=== PATIENT | female | born 1945 | race Caucasian/White ===

== ENCOUNTER 2017-04-18 22:54 | Emergency (ER) | payer MEDICARE ==
[2017-04-18 23:11] VITALS: TEMP 97.7
[2017-04-18] MEDS ORDERED: HYDROmorphone 1 MG/ML 1 ML SYRINGE IM STA (23:35)
[2017-04-18] MEDS ORDERED: methylPREDNISolone SOD SUCCI 125 MG/2 ML VIAL IM STA (23:36)
--- NOTE | 2017-04-19 00:10 | ED ---
General Adult HPI - General Chief complaint: Back Pain/Injury Stated complaint: Back Pain Time Seen by Provider: 04/18/17 23:18 Source: patient, family, RN notes reviewed Mode of arrival: ambulatory Limitations: no limitations - History of Present Illness Initial comments: Chief complaint and history of present illness this is a 71-year-old female here with her . The patient is writhing in pain because of disc type pain in her mid to upper thoracic region. This been ongoing for approximately 2 weeks. After lifting heavy water bottles. She did see Dr. Pantoja, a physiatry is reevaluated. She reports he took 14 x-rays and diagnosed her with scoliosis. He then placed her on a Medrol Dosepak. Patient is here because she 's having severe pain and cannot stand the pain. Reports ALLERGIES to codeine. But she can take hydrocodone which she had taken in the past when she had ENT surgery. She's taken only one per night in order to get 20 minutes of rest. - Related Data Home Medications Medication Instructions Recorded Confirmed HYDROcodone/APAP 5-325MG [Rew 1 tab PO Q6HR PRN 04/18/17 04/18/17 5-325] methylPREDNISolone [Medrol Dose See Taper PO DIRECTED 04/18/17 04/18/17 Pack] Previous Rx's Medication Instructions Recorded Dexamethasone 0.75 mg PO DAILY #12 tablet 04/19/17 Diazepam [Valium] 5 mg PO BID #6 tab 04/19/17 Hydrocodone/Acetaminophen [Rew 1 each PO Q6HR PRN #30 tab 04/19/17 5-325] Allergies Allergy/AdvReac Type Severity Reaction Status Date / Time codeine Allergy Itching Verified 04/18/17 23:27 Review of Systems ROS Statement: Those systems with pertinent positive or pertinent negative responses have been documented in the HPI. Review of systems no headache or visual acuity changes no shortness of breath she has back pain specific to a particular area in approximately the T345 area. When she leaned over with her arms hanging down she can relieve herself from the pain. When she tries to lay down and she cannot find a position of comfort. Denies any GI/ problems. No fever or chills. All systems are reviewed. 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 Patient denies any other significant medical problems. Her surgeries include tonsils, adenoids, low back surgery and a melanoma as noted above. Family history mother at colon cancer brother has brain cancer. The patient has ALLERGIES to codeine. She can take hydrocodone which she's had in the past for ENT procedure. She's been using 1 pill sparingly and the prescription was written over 3 years ago. nonsmoker occasional alcohol use. ROS Other: All systems not noted in ROS Statement are negative. Past Medical History Past Medical History: No Reported History, Cancer Additional Past Medical History / Comment(s): melonoma History of Any Multi-Drug Resistant Organisms: None Reported Past Surgical History: Adenoidectomy, Back Surgery, Orthopedic Surgery, Tonsillectomy Additional Past Surgical History / Comment(s): melonoma removed left buttoch Past Psychological History: No Psychological Hx Reported Smoking Status: Never smoker Past Alcohol Use History: Occasional Past Drug Use History: None Reported General Exam - General Exam Comments Initial Comments: General: The patient is awake and alert, moderate distress because of pain to her thoracic spine at approximately level of T4. This started after lifting very heavy water bottles several weeks ago. Vital signs temp 97.7 pulse 104 respiratory rate 19 and pulse ox 90% room air blood pressure 176 /108. Elevated because of pain Eye: Pupils are equal, round and reactive to light, extra-ocular movements are intact ; there is normal conjunctiva bilaterally. No signs of icterus. Ears, nose, mouth and throat: There are moist mucous membranes Neck: The neck is supple, there is no tenderness Cardiovascular: There is a regular rate and rhythm. No murmur, rub or gallop is appreciated. Respiratory: Lungs are clear to auscultation, respirations are non-labored, breath sounds are equal. No wheezes, stridor, rales, or rhonchi. Gastrointestinal: Soft, non-distended, non-tender abdomen without masses or organomegaly noted. There is no rebound or guarding present. No CVA tenderness. Bowel sounds are unremarkable. Back: Moderate to severe pain in the disc space approximately T4. Patient reports her blood pressure over the area hurts less. No rash noted. No bruising noted. No numbness or tingling down the arms. Patient reports if she leans forward with her arms dangling this relieves the pressure and pain in her back. Musculoskeletal: Normal ROM, no tenderness, There is no pedal edema. There is no calf tenderness or swelling. Sensation intact. Neurological: CN II-XII intact, There are no obvious motor or sensory deficits. Coordination appears grossly intact. Speech is normal. No focal or lateralizing signs. Skin: Skin is warm and dry and no rashes or lesions are noted. No rashes noted, early shingles discussed. Limitations: no limitations Course Vital Signs 04/18/17 23:06 Temperature 97.7 F Pulse Rate 104 H Respiratory 19 Rate Blood Pressure 176/108 O2 Sat by Pulse 98 Oximetry Medical Decision Making - Medical Decision Making After the shot and a steroid injection patient is feeling significantly better. She'll be placed on Decadron dose pack to be started tomorrow. Also Rew 5 mg one every 4-6 hours for pain and Valium 5 mg 1 twice a day. Advised follow- up with her family physician and her orthopedic surgeon. Disposition Clinical Impression: Thoracic disc disorder Disposition: HOME SELF-CARE Condition: Fair Instructions: Degenerative Disc Disease (ED), Thoracic Back Strain (ED) Additional Instructions: Do gentle stretching, alternating with hot showers. Take medications as directed. Follow-up family physician and orthopedic surgeon Prescriptions: Dexamethasone 0.75 mg PO DAILY #12 tablet Diazepam [Valium] 5 mg PO BID #6 tab Hydrocodone/Acetaminophen [Rew 5-325] 1 each PO Q6HR PRN #30 tab PRN Reason: Pain Referrals: None,Stated [Primary Care Provider] - 1-2 days Time of Disposition: 00:54
[2017-04-19 01:12] VITALS: BP 170/93; PULSE 66; RESP 17
[2017-04-19] MEDS ORDERED: diphenhydrAMINE 50 MG CAP PO STA (01:15)
== END 2017-04-19 01:19 | disposition home or self-care (01) ==
LOC: EC 22:54
DX: M51.84 Other intervertebral disc disorders, thoracic region (principal); M41.9 Scoliosis, unspecified; Z79.52 Long term (current) use of systemic steroids; Z88.5 Allergy status to narcotic agent; Z85.820 Personal history of malignant melanoma of skin; Z98.890 Other specified postprocedural states
CPT/HCPCS: 99283; 96372 ×2; J2930; J1170; 36415; 82565; 84520

== ENCOUNTER → 2017-04-19 | Outpatient (CLI) | payer MEDICARE ==
[2017-04-19 13:38] LABS: Blood Urea Nitrogen 19 mg/dL (7-17); Non-African American GFR(MDRD) >60 (>60 ml/min/1.73 sqM)
== END | disposition home or self-care (01) ==
LOC: LABWHC1 12:49
PROVIDERS: ATTEND Physical Medicine & Rehabilitation
DX: M47.22 Other spondylosis with radiculopathy, cervical region (principal); M47.27 Other spondylosis with radiculopathy, lumbosacral region; M47.814 Spondylosis without myelopathy or radiculopathy, thoracic region; M41.83 Other forms of scoliosis, cervicothoracic region; M41.26 Other idiopathic scoliosis, lumbar region
CPT/HCPCS: 36415; 82565; 84520

== ENCOUNTER → 2017-07-28 | Outpatient (CLI) | payer MEDICARE ==
--- NOTE | 2017-07-28 08:01 | US ---
EXAMINATION TYPE: US thyroid st tissue head/neck DATE OF EXAM: 07/28/2017 COMPARISON: NONE CLINICAL HISTORY: 71-year-old female E04.1 Thryoid Nodule. recent MRI saw nodule on thyroid TECHNIQUE: Multiple sonographic images of the thyroid gland are obtained. FINDINGS: GLAND SIZE: Right Lobe: 4.3 x 1.8 x 1.6 cm Overall Parenchyma: homogenous Left Lobe: 3.1 x 1.2 x 1.4 cm Overall Parenchyma: homogeneous Isthmus Thickness: 0.4 cm NODULES RIGHT: # of nodules measured on right: 1 1. 0.9 X 0.7 x 0.7 cm hypoechoic solid nodule at the mid pole with well-defined margins. This nodu le is taller than wide and shows intranodular vascularity. Prior size: [employer] LEFT: # of nodules measured on left: 0 ISTHMUS: # of nodules measured in the isthmus: 0 Bilateral neck scanned, no evidence of lymphadenopathy. IMPRESSION: Solitary 9 mm solid nodule right mid pole. Follow-up can be performed.
== END | disposition home or self-care (01) ==
LOC: RADUSWWP 07:20
PROVIDERS: ATTEND Otolaryngology
DX: E04.1 Nontoxic single thyroid nodule (principal)
CPT/HCPCS: 76536

== ENCOUNTER 2017-08-09 09:45 | Day surgery (SDC) | payer MEDICARE ==
[2017-08-04 14:44] VITALS: BMI 24.2
--- NOTE | 2017-08-09 05:13 | HP ---
HISTORY AND PHYSICAL CHIEF COMPLAINT: Fluid in the right ear. HISTORY OF PRESENT ILLNESS: This patient is a very pleasant 71-year-old female who was recently seen in my office complaining of having a plugged sensation and decreased hearing in her right ear. The patient stated that she had mild allergies, but does not take any medications for this. At the time that the patient was seen in my office, clinical examination of the ears revealed fluid in the right middle ear space suggesting chronic right serous otitis media so-called glue ear. The patient was placed on a course of oral antibiotics and steroids and was seen back approximately 2 weeks later for evaluation. At that time, it was noted that she had not noticed any significant improvement. Clinical examination revealed the patient still had fluid present in her right ear. It was therefore recommended that the patient undergo a right myringotomy with insertion of a ventilation tube under IV sedation with MAC. PAST MEDICAL HISTORY: Past medical history reveals that she has a known allergy to MORPHINE and to CODEINE. MEDICATIONS: Current medications include Neurontin. PREVIOUS SURGERIES: Previous surgeries include bilateral hernia repair, tubal ligation, multiple benign breast biopsies, removal of melanoma from her buttock, tonsillectomy with adenoidectomy, removal of ganglion cyst from her left wrist, lower back surgery, and rotator cuff repair. There is no history of asthma, diabetes mellitus or hypertension. REVIEW OF SYSTEMS: The review of systems is essentially noncontributory. PHYSICAL EXAMINATION: The patient is a pleasant 71-year-old female who is alert and cooperative. HEENT EXAMINATION: Patient is normocephalic. Left tympanic membrane is unremarkable. Right tympanic membrane is dull with fluid in the right middle ear space. Pupils equal, round, react to light and accommodation. Extraocular movements within normal limits. Intranasal examination reveals moderate to severe septal deviation with compensatory hypertrophy of the inferior turbinates. Moderate amount of mucus on the mucous membranes and draining down the posterior pharynx. Examination of the oropharynx, cranial nerves 2 through 12 and remainder of the head and neck exam all within normal limits. CHEST/CARDIOVASCULAR: Both lung rincon are clear to percussion and auscultation. The patient is in regular sinus rhythm. S1 and S2 are present without evidence of any murmurs, S3 or S4s. ABDOMEN: There is no evidence the masses, megaly or tenderness. The abdomen is soft. Skin is unremarkable. Musculoskeletal and neurological are within normal limits. PELVIC RECTAL EXAM: The pelvic rectal examination is deferred at this time because the patient has this done on a regular basis at her family physician's office. The remainder of the physical examination is essentially unremarkable. IMPRESSION: Chronic right serous otitis media. PLAN: The patient is scheduled to undergo a right myringotomy with insertion of a ventilation tube under IV sedation with MAC in the a.m. ATTENTION RNS IN THE PRE-SURGICAL AREA: I have not ordered any pre-surgical prophylactic antibiotics for this patient. If the pharmacy department sends any pre- surgical prophylactic antibiotics to the pre-surgical area for this patient, that order should be cancelled and the medication should be returned to the pharmacy department. Please make sure that the patient's account is credited appropriately. I have discussed the risks, benefits and alternative therapies for the above-mentioned procedure and for both sedation/analgesia as well as necessary blood product administration, if indicated, as they pertain to this patient. The patient has indicated his or her understanding and acceptance of the risks and procedures discussed. MMMIRIANL / JLN: [id number] /
[~2017-08-09 09:45] MED LIST: DEXAMETHASONE SOD PHOSPHATE 10 MG/ML 1 ML VIAL IV ONE; LACTATED RINGERS 1,000 ML IV SCH; MIDAZOLAM 2 MG/2 ML VIAL IV PRN; ONDANSETRON 4 MG/2 ML VIAL IVP ONE; Pre Op ABX Message 1 EACH MISC MISCELLANE ONE; fentaNYL (PF) 50 MCG/ML 2 ML AMP IV PRN
--- NOTE | 2017-08-09 20:27 | OP ---
OPERATIVE REPORT DATE OF SURGERY: 08/09/2017 PREOPERATIVE DIAGNOSIS: Chronic right serous otitis media. The operative procedure was canceled by the patient because she stated that her hearing had returned to normal and that it felt 100% better. She will contact the office if this situation changes. NINA / YAZ: [id number] /
== END 2017-08-09 12:45 | disposition home or self-care (01) ==
LOC: OR 09:45
PROVIDERS: ATTEND Otolaryngology
DX: H65.21 Chronic serous otitis media, right ear (principal); Z53.29 Procedure and treatment not carried out because of patient's decision for other reasons; Z88.5 Allergy status to narcotic agent; Z79.899 Other long term (current) drug therapy

== ENCOUNTER → 2017-09-21 | Outpatient (CLI) | payer MEDICARE | END | disposition home or self-care (01) | LOC: LABWHC1 11:30 | PROVIDERS: ATTEND Physical Medicine & Rehabilitation | DX: M54.2 Cervicalgia (principal); M47.22 Other spondylosis with radiculopathy, cervical region; M47.24 Other spondylosis with radiculopathy, thoracic region; M51.14 Intervertebral disc disorders with radiculopathy, thoracic region; M54.6 Pain in thoracic spine; M47.27 Other spondylosis with radiculopathy, lumbosacral region; M54.5 Low back pain; M51.36 Other intervertebral disc degeneration, lumbar region; M70.62 Trochanteric bursitis, left hip; M25.552 Pain in left hip | CPT/HCPCS: 36415; 84443 ==

== ENCOUNTER → 2018-03-28 | Outpatient (CLI) | payer MEDICARE ==
--- NOTE | 2018-03-28 11:41 | MM ---
Reason for exam: additional evaluation requested from prior study. Last mammogram was performed 3 years and 11 months ago. History: Patient is postmenopausal and has history of other cancer at age 60. Family history of breast cancer in maternal aunt at age 89 and breast cancer in sister at age 58. Benign core biopsy of the right breast, August 29, 1996. Benign stereotactic core biopsy of the right breast, August 29, 1996. Took estrogen for 1 month. Physical Findings: Nurse did not find any significant physical abnormalities on exam. MG 3D Diag Mammo W/Cad TOMA Bilateral CC and MLO view(s) were taken. Prior study comparison: April 13, 2014, right breast MG work up mamm w CAD RT. April 06, 2014, bilateral MG screening mammo w CAD. There are scattered fibroglandular densities. No suspicious abnormality. Stable right upper outer quadrant focal asymmetry. These results were verbally communicated with the patient and result sheet given to the patient on 03/28/18. ASSESSMENT: Benign, BI-RAD 2 RECOMMENDATION: Routine screening mammogram of both breasts in 1 year.
== END ==
LOC: RADMAMWWP 09:20
PROVIDERS: ATTEND Family Medicine
DX: R92.8 Other abnormal and inconclusive findings on diagnostic imaging of breast (principal)
CPT/HCPCS: 77066; G0279; 77062

== ENCOUNTER 2023-03-06 21:48 | Inpatient (IN) | payer MEDICARE ==
[2023-03-06] MEDS ORDERED: HYDROmorphone 1 MG/ML 1 ML SYRINGE IVP STA (21:58)
[2023-03-06] MEDS ORDERED: diphenhydrAMINE 50 MG/ML 1 ML VIAL IVP STA (21:58)
[2023-03-06] MEDS ORDERED: KETOROLAC 15 MG/ML 1 ML VIAL IVP STA (21:58)
[2023-03-06] MEDS ORDERED: SODIUM CHLORIDE 0.9% 1,000 ML IV STA (21:58)
[2023-03-06] MEDS ORDERED: PROCHLORPERAZINE INJ 10 MG/2 ML VIAL IVP STA (21:58)
[2023-03-06] MEDS ORDERED: DEXAMETHASONE SOD PHOSPHATE 10 MG/ML 1 ML VIAL IVP STA (21:59)
--- NOTE | 2023-03-06 22:29 | ED ---
Headache HPI - General Chief Complaint: Headache Stated Complaint: Dizziness, Headaches Time Seen by Provider: 03/06/23 21:57 Source: RN notes reviewed, old records reviewed Mode of arrival: ambulatory Limitations: no limitations - History of Present Illness Initial Comments: This is a 77-year-old female to the emergency department today for evaluation patient Dese for evaluation of severe headache headache and artery pain. Patient states she had a history of recent arterial pain with headache and presents with recurrent headache here in the ER no trauma no fevers. Patient recently did stop taking steroids as it was making her blood pressure high. MD Complaint: headache, "migraine" -: week(s) Onset Description: gradual Location: frontal, temporal Severity: severe Severity scale (1-10): 8 Quality: throbbing, pulsatile, sharp Consistency: constant Improves With: nothing Worsens With: none Context: occurred at rest Associated Symptoms: nausea Other Symptoms: other (0) - Related Data Home Medications Medication Instructions Recorded Confirmed Cyclobenzaprine [Flexeril] 5 mg PO BID PRN 01/29/23 03/07/23 Metoprolol Succinate (ER) [Toprol 100 mg PO DAILY 01/29/23 03/07/23 XL] Pregabalin [Lyrica] 75 mg PO TID 01/29/23 03/07/23 QUEtiapine FUMARATE 50 mg PO HS 01/29/23 03/07/23 Sertraline [Zoloft] 25 mg PO HS 01/29/23 03/07/23 [id number] 1 tab PO Q4HR PRN 03/07/23 03/07/23 [Excedrin] Previous Rx's Medication Instructions Recorded Calcium Carbonate [Tums] 500 mg PO QID PRN tab 01/30/23 Celecoxib 200 mg PO DAILY 30 Days #30 cap 01/30/23 Allergies Allergy/AdvReac Type Severity Reaction Status Date / Time codeine Allergy Itching Verified 03/07/23 10:59 Review of Systems ROS Statement: Those systems with pertinent positive or pertinent negative responses have been documented in the HPI. ROS Other: All systems not noted in ROS Statement are negative. 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 and l ower back pain with nerve pain, rt ear "plugged" History of Any Multi-Drug Resistant Organisms: None Reported Past Surgical History: Adenoidectomy, Back Surgery, Hernia Repair, Orthopedic Surgery, Tonsillectomy Additional Past Surgical History / Comment(s): melanoma removed left buttock, 3 back surgeries with screws in place, ganglion cyst sx Past Anesthesia/Blood Transfusion Reactions: No Reported Reaction Past Psychological History: No Psychological Hx Reported Smoking Status: Never smoker Past Alcohol Use History: Rare Past Drug Use History: None Reported - Past Family History Mother Family Medical History: Cancer Additional Family Medical History / Comment(s): colon Brother(s) Family Medical History: Cancer Additional Family Medical History / Comment(s): brain tumor tx chemo and radiation General Exam Limitations: no limitations General appearance: alert, in no apparent distress, anxious Head exam: Present: atraumatic, normocephalic, normal inspection Eye exam: Present: normal appearance, PERRL, EOMI. Absent: scleral icterus, c onjunctival injection, periorbital swelling ENT exam: Present: normal exam, mucous membranes moist Neck exam: Present: normal inspection. Absent: tenderness, meningismus, lymphadenopathy Respiratory exam: Present: normal lung sounds bilaterally. Absent: respiratory distress, wheezes, rales, rhonchi, stridor Cardiovascular Exam: Present: regular rate, normal rhythm, normal heart sounds. Absent: systolic murmur, diastolic murmur, rubs, gallop, clicks GI/Abdominal exam: Present: soft, normal bowel sounds. Absent: distended, tenderness, guarding, rebound, rigid Extremities exam: Present: normal inspection, full ROM, normal capillary refill. Absent: tenderness, pedal edema, joint swelling, calf tenderness Back exam: Present: normal inspection Neurological exam: Present: alert, oriented X3, CN II-XII intact Psychiatric exam: Present: normal affect, normal mood Skin exam: Present: warm, dry, intact, normal color. Absent: rash Course Vital Signs 03/06/23 03/06/23 03/07/23 21:49 23:00 00:00 Temperature 97.8 F Pulse Rate 99 92 86 Respiratory 18 16 16 Rate Blood Pressure 154/114 117/84 112/90 O2 Sat by Pulse 97 90 L 95 Oximetry - Reevaluation(s) Reevaluation #1: 03/07/23 01:37 EDT Medical records reviewed Reevaluation #2: 03/07/23 01:37 EDT Issue symptoms improved Reevaluation #3: 03/07/23 01:37 EDT She'll 40 results questions answered Reevaluation #4: 03/07/23 01:37 EDT Was pt. sent in by a medical professional or institution ([facility], [facility], urgent care, hospital, or fci...) When possible be specific @ -no Did you speak to anyone other than the patient for history (EMS, parent, family, police, friend...)? What history was obtained from this source @ -no Did you review nursing and triage notes (agree or disagree)? Why? @ -agree Are old charts reviewed (outside hosp., previous admission, EMS record, old EKG, old radiological studies, urgent care reports/EKG's, fci records)? Report findings @ -yes Differential Diagnosis (chest pain, altered mental status, abdominal pain women, abdominal pain men, vaginal bleeding, weakness, fever, dyspnea, syncope, headache, dizziness, GI bleed, back pain, seizure, CVA, palpatations, mental health, musculoskeletal)? @ -prior EKG interpreted by me (3pts min.). @ -yes X-rays interpreted by me (1pt min.). @ -no CT interpreted by me (1pt min.). @ -no U/S interpreted by me (1pt. min.). @ -no What testing was considered but not performed or refused? (CT, X-rays, U/S, labs)? Why? @ -none What meds were considered but not given or refused? Why? @ -none Did you discuss the management of the patient with other professionals (professionals i.e. [facility], [facility], lab, RT, psych nurse, web content & social media manager, die repair, teacher, correctional probation officer, case aide)? Give summary @ -no Was smoking cessation discussed for >3mins.? @ -no Was critical care preformed (if so, how long)? @ -no Were there social determinants of health that impacted care today? How? (Homelessness, low income, unemployed, alcoholism, drug addiction, transportation, low edu. Level, literacy, decrease access to med. care, care home, rehab)? @ -none Was there de-escalation of care discussed even if they declined (Discuss DNR or withdrawal of care, Hospice)? DNR status @ -no What co-morbidities impacted this encounter? (DM, HTN, Smoking, COPD, CAD, Cancer, CVA, ARF, Chemo, Hep., AIDS, mental health diagnosis, sleep apnea, morbid obesity)? @ -none Was patient admitted / discharged? Hospital course, mention meds given and route, prescriptions, significant lab abnormalities, going to OR and other perti nent info. @ - 43 female to the emergency department for evaluation of abdominal pain found of urinary tract infection. Patient was placed on antibiotics and can be discharged home Discharge Undiagnosed new problem with uncertain prognosis? @ -no Drug Therapy requiring intensive monitoring for toxicity (Heparin, Nitro, Insulin, Cardizem)? @ -no Were any procedures done? @ -no Diagnosis/symptom? @ -Headache, possible temporal arteritis Acute, or Chronic, or Acute on Chronic? @ -Acute Uncomplicated (without systemic symptoms) or Complicated (systemic symptoms)? @ -Complicated Side effects of treatment? @ -no Exacerbation, Progression, or Severe Exacerbation? @ -exacerbation Poses a threat to life or bodily function? How? (Chest pain, [place], HI, pneumonia, PE, COPD, DKA, ARF, appy, cholecystitis, CVA, Diverticulitis, Homicidal, Suicidal, threat to staff... and all critical care pts) @ -no Reevaluation #5: 03/07/23 01:37 EDT Differential Headache: Migraine, tension, cluster, carbon monoxide, central venous thrombosis, pension karma temporal arteritis, acute closure glaucoma, intercranial hemorrhage, mastoiditis, sinusitis, head injury, this is not meant to be an all-inclusive list. - Consultations Consultation #1: Spoke with admitting physicians who agree to admit this patient Medical Decision Making - Medical Decision Making 87 female with recent diagnosis of likely temporal arteritis. Patient be started on steroids that she was recently taken off steroids for temporal arteritis treatment pain control. - Lab Data Result diagrams: 03/09/23 10:19 03/09/23 10:19 Lab Results 03/06/23 03/06/23 03/06/23 Range/Units 22:18 22:18 22:18 WBC 8.8 (3.8-10.6) k/uL RBC 3.76 L (3.80-5.40) m/uL Hgb 11.0 L (11.4-16.0) gm/dL Hct 33.7 L (34.0-46.0) % MCV 89.7 (80.0-100.0) fL MCH 29.3 (25.0-35.0) pg MCHC 32.7 (31.0-37.0) g/dL RDW 15.7 H (11.5-15.5) % Plt Count 478 H (150-450) k/uL MPV 8.3 Neutrophils % 58 % Lymphocytes % 32 % Monocytes % 5 % Eosinophils % 1 % Basophils % 0 % Neutrophils # 5.1 (1.3-7.7) k/uL Lymphocytes # 2.8 (1.0-4.8) k/uL Monocytes # 0.5 (0-1.0) k/uL Eosinophils # 0.1 (0-0.7) k/uL Basophils # 0.0 (0-0.2) k/uL ESR 60 H (0-30) mm/Hr PT 10.1 (10.0-12.5) sec INR 0.9 (<1.2) APTT 31.5 H (22.0-30.0) sec Sodium 136 L (137-145) mmol/L Potassium 4.0 (3.5-5.1) mmol/L Chloride 107 (98-107) mmol/L Carbon Dioxide 21 L (22-30) mmol/L Anion Gap 8 mmol/L BUN 11 (7-17) mg/dL Creatinine 0.60 (0.52-1.04) mg/dL Est GFR (CKD-EPI)AfAm >90 (>60 ml/min/1.73 sqM) Est GFR (CKD-EPI)NonAf 90 (>60 ml/min/1.73 sqM) Glucose 116 H (74-99) mg/dL Calcium 9.1 (8.4-10.2) mg/dL Phosphorus 2.8 (2.5-4.5) mg/dL Magnesium 2.0 (1.6-2.3) mg/dL Total Bilirubin 0.6 (0.2-1.3) mg/dL AST 26 (14-36) U/L ALT 23 (4-34) U/L Alkaline Phosphatase 159 H (38-126) U/L Troponin I (0.000-0.034) ng/mL C-Reactive Protein 4.7 H (<1.0) mg/dL NT-Pro-B Natriuret Pep 484 pg/mL Total Protein 6.4 (6.3-8.2) g/dL Albumin 3.7 (3.5-5.0) g/dL Vitamin B12 (200.0-944.0) pg/mL Folate (4.40-31.00) ng/mL TSH (0.350-5.500) UIU/ML Rheumatoid Factor (0-15) IU/mL MARIANO Screen (Negative) 03/06/23 03/07/23 03/08/23 Range/Units 22:18 12:45 13:17 WBC (3.8-10.6) k/uL RBC (3.80-5.40) m/uL Hgb (11.4-16.0) gm/dL Hct (34.0-46.0) % MCV (80.0-100.0) fL MCH (25.0-35.0) pg MCHC (31.0-37.0) g/dL RDW (11.5-15.5) % Plt Count (150-450) k/uL MPV Neutrophils % % Lymphocytes % % Monocytes % % Eosinophils % % Basophils % % Neutrophils # (1.3-7.7) k/uL Lymphocytes # (1.0-4.8) k/uL Monocytes # (0-1.0) k/uL Eosinophils # (0-0.7) k/uL Basophils # (0-0.2) k/uL ESR 48 H (0-30) mm/Hr PT (10.0-12.5) sec INR (<1.2) APTT (22.0-30.0) sec Sodium (137-145) mmol/L Potassium (3.5-5.1) mmol/L Chloride (98-107) mmol/L Carbon Dioxide (22-30) mmol/L Anion Gap mmol/L BUN (7-17) mg/dL Creatinine (0.52-1.04) mg/dL Est GFR (CKD-EPI)AfAm (>60 ml/min/1.73 sqM) Est GFR (CKD-EPI)NonAf (>60 ml/min/1.73 sqM) Glucose (74-99) mg/dL Calcium (8.4-10.2) mg/dL Phosphorus (2.5-4.5) mg/dL Magnesium (1.6-2.3) mg/dL Total Bilirubin (0.2-1.3) mg/dL AST (14-36) U/L ALT (4-34) U/L Alkaline Phosphatase (38-126) U/L Troponin I <0.012 (0.000-0.034) ng/mL C-Reactive Protein (<1.0) mg/dL NT-Pro-B Natriuret Pep pg/mL Total Protein (6.3-8.2) g/dL Albumin (3.5-5.0) g/dL Vitamin B12 262.0 (200.0-944.0) pg/mL Folate (4.40-31.00) ng/mL TSH 3.780 (0.350-5.500) UIU/ML Rheumatoid Factor <15 (0-15) IU/mL MARIANO Screen (Negative) 03/08/23 03/08/23 Range/Units 13:17 13:17 WBC (3.8-10.6) k/uL RBC (3.80-5.40) m/uL Hgb (11.4-16.0) gm/dL Hct (34.0-46.0) % MCV (80.0-100.0) fL MCH (25.0-35.0) pg MCHC (31.0-37.0) g/dL RDW (11.5-15.5) % Plt Count (150-450) k/uL MPV Neutrophils % % Lymphocytes % % Monocytes % % Eosinophils % % Basophils % % Neutrophils # (1.3-7.7) k/uL Lymphocytes # (1.0-4.8) k/uL Monocytes # (0-1.0) k/uL Eosinophils # (0-0.7) k/uL Basophils # (0-0.2) k/uL ESR (0-30) mm/Hr PT (10.0-12.5) sec INR (<1.2) APTT (22.0-30.0) sec Sodium (137-145) mmol/L Potassium (3.5-5.1) mmol/L Chloride (98-107) mmol/L Carbon Dioxide (22-30) mmol/L Anion Gap mmol/L BUN (7-17) mg/dL Creatinine (0.52-1.04) mg/dL Est GFR (CKD-EPI)AfAm (>60 ml/min/1.73 sqM) Est GFR (CKD-EPI)NonAf (>60 ml/min/1.73 sqM) Glucose (74-99) mg/dL Calcium (8.4-10.2) mg/dL Phosphorus (2.5-4.5) mg/dL Magnesium (1.6-2.3) mg/dL Total Bilirubin (0.2-1.3) mg/dL AST (14-36) U/L ALT (4-34) U/L Alkaline Phosphatase (38-126) U/L Troponin I (0.000-0.034) ng/mL C-Reactive Protein (<1.0) mg/dL NT-Pro-B Natriuret Pep pg/mL Total Protein (6.3-8.2) g/dL Albumin (3.5-5.0) g/dL Vitamin B12 (200.0-944.0) pg/mL Folate 14.20 (4.40-31.00) ng/mL TSH (0.350-5.500) UIU/ML Rheumatoid Factor (0-15) IU/mL MARIANO Screen Negative (Negative) - EKG Data -: EKG Interpreted by Me (EKG is sinus tachycardia 101 PA 174 QRS 181 QTC 381) Disposition Clinical Impression: Temporal arteritis, Headache Disposition: ADMITTED IP TO THIS HOSP Condition: Fair Is patient prescribed a controlled substance at d/c from ED?: No Time of Disposition: 01:30
[2023-03-06 22:39] LABS: Basophils % (A) 0 %; Eosinophils # (A) 0.1 k/uL (0-0.7); Eosinophils % (A) 1 %; HCT 33.7 % (34.0-46.0); Lymphocytes # (A) 2.8 k/uL (1.0-4.8); Lymphocytes % (A) 32 %; MCH 29.3 pg (25.0-35.0); MCHC 32.7 g/dL (31.0-37.0); MCV 89.7 fL (80.0-100.0); Mean Platelet Volume 8.3; Monocytes # (A) 0.5 k/uL (0-1.0); Monocytes % (A) 5 %; Neutrophils # (A) 5.1 k/uL (1.3-7.7); Neutrophils % (A) 58 %; Platelet Count 478 k/uL (150-450); RBC 3.76 m/uL (3.80-5.40); RDW 15.7 % (11.5-15.5); WBC 8.8 k/uL (3.8-10.6)
[2023-03-06 22:45] LABS: INR 0.9 (<1.2); Partial Thromboplastin Time 31.5 sec (22.0-30.0); Prothrombin Time 10.1 sec (10.0-12.5)
[2023-03-06 22:56] LABS: Sodium 136 mmol/L (137-145)
[2023-03-06 22:57] LABS: ALT 23 U/L (4-34); AST 26 U/L (14-36); African American GFR (CKD) >90 (>60 ml/min/1.73 sqM); Albumin 3.7 g/dL (3.5-5.0); Alkaline Phosphatase 159 U/L (38-126); Anion Gap 8 mmol/L; Blood Urea Nitrogen 11 mg/dL (7-17); C Reactive Protein 4.7 mg/dL (<1.0); Calcium 9.1 mg/dL (8.4-10.2); Carbon Dioxide 21 mmol/L (22-30); Chloride 107 mmol/L (98-107); Glucose 116 mg/dL (74-99); Non-African American GFR(CKD) 90 (>60 ml/min/1.73 sqM); Phosphorus 2.8 mg/dL (2.5-4.5); Total Bilirubin 0.6 mg/dL (0.2-1.3); Total Protein 6.4 g/dL (6.3-8.2)
[2023-03-06 23:04] LABS: NT-Pro-B-Type Natriuretic Pept 484 pg/mL
[2023-03-07] MEDS: SODIUM CHLORIDE 0.9% 1,000 ML IV SCH ×2 (01:18→14:50)
[2023-03-07] MEDS ORDERED: ONDANSETRON 4 MG/2 ML VIAL IVP PRN (01:35)
[2023-03-07] MEDS ORDERED: NALOXONE 0.4 MG/ML 1 ML VIAL IV PRN (01:35)
[2023-03-07] MEDS ORDERED: ACETAMINOPHEN TAB 325 MG TAB PO PRN (01:35)
[2023-03-07] MEDS: HYDROmorphone 0.5 MG/0.5 ML SYRINGE IVP PRN ×7 (01:47→23:11)
[2023-03-07 09:33] LABS: Erythrocyte Sedimentation Rate 60 mm/Hr (0-30)
[2023-03-07] MEDS ORDERED: CYCLOBENZAPRINE 5 MG TAB PO PRN (12:22)
[2023-03-07] MEDS ORDERED: ASPIRIN-ACET-CAFF 250-250-65MG 1 EACH TAB PO PRN (12:22)
[2023-03-07] MEDS ORDERED: KETOROLAC 15 MG/ML 1 ML VIAL IVP PRN (12:29)
[2023-03-07] MEDS: PREGABALIN 75 MG CAP PO SCH ×3 (12:35→20:20)
[2023-03-07] MEDS: MELOXICAM 7.5 MG TAB PO SCH (13:03)
[2023-03-07] MEDS: PANTOPRAZOLE 40 MG/10 ML VIAL IVP SCH ×2 (13:03→20:20)
[2023-03-07] MEDS: LORATADINE-PSEUDOEPH 5-120 MG 1 EACH TAB.ER.12H PO SCH ×2 (13:03→20:20)
--- NOTE | 2023-03-07 13:57 | P.HPIM ---
History of Present Illness Patient came in with pain and headache in the bilateral temporal area without any visual changes patient headache is severe 8/10 in severity of the bilateral temporal area as well as the maxillary sinus and ethmoid sinus around the eyes. Patient does have sinusitis. Patient was recently hospitalized and at that time temporal arteries this was suspected temporal artery biopsy was never obtain but her years her was very high patient was referred to vascular surgery as an outpatient and patient ended up deciding that the she will not go for temporal artery biopsy is sent symptoms already improved with the systemic steroids. P atient's stop his steroids because of her EKGs facial swelling. Patient denied any visual problems or any history of migraine in the past REVIEW OF SYSTEMS: CONSTITUTIONAL: No fever, no malaise, no fatigue. HEENT: No recent visual problems or hearing problems. Denied any sore throat. CARDIOVASCULAR: No chest pain, orthopnea, PND, no palpitations, no syncope. PULMONARY: No shortness of breath, no cough, no hemoptysis. GASTROINTESTINAL: No diarrhea, no nausea, no vomiting, no abdominal pain. NEUROLOGICAL: No no weakness, no numbness. HEMATOLOGICAL: Denies any bleeding or petechiae. GENITOURINARY: Denies any burning micturition, frequency, or urgency. MUSCULOSKELETAL/RHEUMATOLOGICAL: Denies any joint pain, swelling, or any muscle pain. ENDOCRINE: Denies any polyuria or polydipsia. The rest of the 14-point review of systems is negative. PHYSICAL EXAMINATION: GENERAL: The patient is alert and oriented x3, not in any acute distress. Well developed, well nourished. HEENT: Pupils are round and equally reacting to light. EOMI. No scleral icterus. No conjunctival pallor. Normocephalic, atraumatic. No pharyngeal erythema. No thyromegaly. CARDIOVASCULAR: S1 and S2 present. No murmurs, rubs, or gallops. PULMONARY: Chest is clear to auscultation, no wheezing or crackles. ABDOMEN: Soft, nontender, nondistended, normoactive bowel sounds. No palpable organomegaly. MUSCULOSKELETAL: No joint swelling or deformity. EXTREMITIES: No cyanosis, clubbing, or pedal edema. NEUROLOGICAL: Gross neurological examination did not reveal any focal deficits. SKIN: No rashes. Assessment and plan -Headache may be secondary to sinusitis patient did never was diagnosed with temporal artery biopsy for temporal arthritis but this was suspected during Hospitalization month ago. Repeat the ESR continue with anti-inflammatory medications for headache migraine is another possibility neurology will be consulted. 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 and lower back pain with nerve pain, rt ear "plugged" History of Any Multi-Drug Resistant Organisms: None Reported Past Surgical History: Adenoidectomy, Back Surgery, Hernia Repair, Orthopedic Surgery, Tonsillectomy Additional Past Surgical History / Comment(s): melanoma removed left buttock, 3 back surgeries with screws in place, ganglion cyst sx Past Anesthesia/Blood Transfusion Reactions: No Reported Reaction Past Psychological History: No Psychological Hx Reported Smoking Status: Never smoker Past Alcohol Use History: Rare Past Drug Use History: None Reported - Past Family History Mother Family Medical History: Cancer Additional Family Medical History / Comment(s): colon Brother(s) Family Medical History: Cancer Additional Family Medical History / Comment(s): brain tumor tx chemo and radiation Medications and Allergies Home Medications Medication Instructions Recorded Confirmed Type Cyclobenzaprine [Flexeril] 5 mg PO BID PRN 01/29/23 03/07/23 History Metoprolol Succinate (ER) [Toprol 100 mg PO DAILY 01/29/23 03/07/23 History XL] Pregabalin [Lyrica] 75 mg PO TID 01/29/23 03/07/23 History QUEtiapine FUMARATE 50 mg PO HS 01/29/23 03/07/23 History Sertraline [Zoloft] 25 mg PO HS 01/29/23 03/07/23 History Calcium Carbonate [Tums] 500 mg PO QID PRN tab 01/30/23 03/07/23 Rx Celecoxib 200 mg PO DAILY 30 Days #30 cap 01/30/23 03/07/23 Rx [id number] 1 tab PO Q4HR PRN 03/07/23 03/07/23 History [Excedrin] Allergies Allergy/AdvReac Type Severity Reaction Status Date / Time codeine Allergy Itching Verified 03/07/23 10:59 Physical Exam Vitals: Vital Signs Temp Pulse Pulse Resp BP BP Pulse Ox 03/07/23 08:00 88 18 03/07/23 07:00 97.7 F 88 18 160/103 93 L 03/07/23 01:26 EST 97.8 F 79 16 145/96 97 03/07/23 00:00 86 16 112/90 95 03/06/23 23:00 92 16 117/84 90 L 03/06/23 21:49 97.8 F 99 18 154/114 97 Intake and Output 03/06/23 03/07/23 03/07/23 23:59 06:59 14:59 Other: Voiding Method Toilet # Voids Weight Results CBC & Chem 7: 03/06/23 22:18 03/06/23 22:18 Labs: Abnormal Lab Results - Last 24 Hours (Table) 03/06/23 03/06/23 03/06/23 Range/Units 22:18 22:18 22:18 RBC 3.76 L (3.80-5.40) m/uL Hgb 11.0 L (11.4-16.0) gm/dL Hct 33.7 L (34.0-46.0) % RDW 15.7 H (11.5-15.5) % Plt Count 478 H (150-450) k/uL ESR 60 H (0-30) mm/Hr APTT 31.5 H (22.0-30.0) sec Sodium 136 L (137-145) mmol/L Carbon Dioxide 21 L (22-30) mmol/L Glucose 116 H (74-99) mg/dL Alkaline Phosphatase 159 H (38-126) U/L C-Reactive Protein 4.7 H (<1.0) mg/dL
[2023-03-07] MEDS: SERTRALINE 25 MG TAB PO SCH (20:20)
[2023-03-07] MEDS: QUEtiapine 50 MG TAB PO SCH (20:20)
[2023-03-08] MEDS: HYDROmorphone 0.5 MG/0.5 ML SYRINGE IVP PRN ×7 (02:49→21:26)
[2023-03-08] MEDS: SODIUM CHLORIDE 0.9% 1,000 ML IV SCH (04:40)
[2023-03-08] MEDS: LORATADINE-PSEUDOEPH 5-120 MG 1 EACH TAB.ER.12H PO SCH ×2 (08:07→21:26)
[2023-03-08] MEDS: METOPROLOL SUCCINATE (ER) 100 MG TAB.ER.24H PO SCH (08:07)
[2023-03-08] MEDS: PREGABALIN 75 MG CAP PO SCH ×3 (08:07→21:26)
[2023-03-08] MEDS: PANTOPRAZOLE 40 MG/10 ML VIAL IVP SCH ×2 (08:08→21:26)
[2023-03-08] MEDS: MELOXICAM 7.5 MG TAB PO SCH (08:08)
[2023-03-08] MEDS: hydroCHLOROthiazide 25 MG TAB PO SCH (08:23)
--- NOTE | 2023-03-08 12:25 | P.CNNES ---
History of Present Illness Consult date: 03/08/23 Requesting physician: Gabriella Jama Reason for Consult: headache History of Present Illness: this is a 77-year-old woman who presented emergency department because of headache. She states that the headache is been going on for the past several months and progressively getting worse. The headache is over the bilateral frontal could be the temporal and bilateral occipital region. Sometimes she feels the headache is over the right frontal radiates to the left temporal region. She feels its the sharp stabbing pain at. She said it's constant but worse in the evening time. She states that the headache is severe. at least she feels her headache has been late deviated drastically with the IV steroids as she got during this hospital visit. Denies of any blurry vision. Denies of any jaw pain or any facial pain. Denies of any focal weakness, numbness, difficulty getting her words out swallowing. Denies of any history of stroke. She stated that that she had a recent MRI of the brain the couple weeks ago as an outpatientand does not know the results. after the steroids as she feels her headache is currently mild up he could not rated the 1-10 but again stated it was mild. Denies of any nausea vomiting. Denies any similar headache in the past. Some of the workup during his hospital visit consisted of: ESR 60 repeat ESR yesterday was 48.this seems on 01/29/2023 her ESR was 101. CRP is 4.7. White blood cell is within normal limits. calcium is 9.1, phosphorus 2.8, magnesium 2.0, sodium is 136. It seems that the patient had a CT of the head on 01/29/2023 and reported as age-related atrophic and chronic small vessel ischemic change without acute intracranial process seen at this time. she had CT of the head because of the headache. Review of Systems Review of system: The 12 point system was reviewed and apparent positive and negative per HPI. 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 and lower back pain with nerve pain, rt ear "plugged" History of Any Multi-Drug Resistant Organisms: None Reported Past Surgical History: Adenoidectomy, Back Surgery, Hernia Repair, Orthopedic Surgery, Tonsillectomy Additional Past Surgical History / Comment(s): melanoma removed left buttock, 3 back surgeries with screws in place, ganglion cyst sx Past Anesthesia/Blood Transfusion Reactions: No Reported Reaction Past Psychological History: No Psychological Hx Reported Smoking Status: Never smoker Past Alcohol Use History: Rare Past Drug Use History: None Reported - Past Family History Mother Family Medical History: Cancer Additional Family Medical History / Comment(s): colon Brother(s) Family Medical History: Cancer Additional Family Medical History / Comment(s): brain tumor tx chemo and radiation Medications and Allergies Home Medications Medication Instructions Recorded Confirmed Type Cyclobenzaprine [Flexeril] 5 mg PO BID PRN 01/29/23 03/07/23 History Metoprolol Succinate (ER) [Toprol 100 mg PO DAILY 01/29/23 03/07/23 History XL] Pregabalin [Lyrica] 75 mg PO TID 01/29/23 03/07/23 History QUEtiapine FUMARATE 50 mg PO HS 01/29/23 03/07/23 History Sertraline [Zoloft] 25 mg PO HS 01/29/23 03/07/23 History Calcium Carbonate [Tums] 500 mg PO QID PRN tab 01/30/23 03/07/23 Rx Celecoxib 200 mg PO DAILY 30 Days #30 cap 01/30/23 03/07/23 Rx [id number]-[id number] 1 tab PO Q4HR PRN 03/07/23 03/07/23 History [Excedrin] Allergies Allergy/AdvReac Type Severity Reaction Status Date / Time codeine Allergy Itching Verified 03/07/23 10:59 Physical Examination - Vital Signs Vital Signs: Vital Signs Temp Pulse Resp BP BP Pulse Ox 03/08/23 10:45 69 136/92 98 03/08/23 07:00 98.2 F 82 16 168/112 03/08/23 02:00 97.5 F L 82 16 133/85 94 L 03/07/23 19:26 97.7 F 84 16 162/95 95 03/07/23 14:56 97.8 F 92 18 162/104 96 03/07/23 14:00 88 18 Intake and Output 03/07/23 03/08/23 03/08/23 22:59 06:59 14:59 Intake Total 50 Balance 50 Intake: Oral 50 Other: Voiding Method Toilet Toilet # Voids 1 1 GENERAL: The patient is lying in bed and is not in acute distress. HENT: Supple neck. NEUROLOGICAL: Higher mental function: The patient is awake, alert, oriented to self, place and time. Patient is following commands. No aphasia and no neglect. Cranial nerves: The pupils are round, equal and reactive to light and accommodation. Visual rincon are full to confrontation throughout. Extraocular movement is intact no nystagmus is noted. Facial sensation is normal to touch throughout. The facial strength is normal throughout. Hearing is mildly decreased bilaterally to bilaterally to hand rub. Tongue is midline and moved [id number] without any difficulty. No dysarthria is noted. Shoulder shrug is normal bilaterally. Motor: Gait is normal. The strength is left lower is 5- and appears chronic. Otherwise 5 over 5 throughout. Normal tone and bulk. Cerebellum: Normal finger to nose bilaterally. Sensation: Sensation is normal to touch throughout. Reflexes (right/left): Left lower is 0 and per patient from her back surgery. Otherwise 2+ throughout. Plantars are mute bilaterally. Results - Laboratory Findings CBC and BMP: 03/06/23 22:18 03/06/23 22:18 Abnormal Lab Findings: Abnormal Labs 03/06/23 03/06/23 03/06/23 22:18 22:18 22:18 RBC 3.76 L Hgb 11.0 L Hct 33.7 L RDW 15.7 H Plt Count 478 H ESR 60 H APTT 31.5 H Sodium 136 L Carbon Dioxide 21 L Glucose 116 H Alkaline Phosphatase 159 H C-Reactive Protein 4.7 H 03/07/23 12:45 RBC Hgb Hct RDW Plt Count ESR 48 H APTT Sodium Carbon Dioxide Glucose Alkaline Phosphatase C-Reactive Protein Assessment and Plan Assessment: this is a 77-year-old woman who is been having headache for the past several months and she feels the headache is over the frontal temporal region as well as occipital is seems that her ESR was elevated as high as 101 on 01/29/2023 which is trending down 248 and she feels the headache is improving with steroids.patient stated that she had a recent MRI of the brain as an outpatient and now does not know the results Cephalgia with elevated ESR: concern for temporal arteritis. ESR was as high as a 101 currently is 48 rule out other vasculitis history of lower back surgery History of osteoporosis Hypertension Plan: patient's refusing images so therefore will try to obtain the recent MRI of the brain results that she had as an outpatient possibly she had at Dr. Luz's office. I consulted vascular surgery team for temporal biopsy I ordered TSH, MARIANO, folate, methylmalonic, rheumatoid factor, vitamin B12 she states she is getting IV steroids and upon reviewing medical record does not seem that she is getting IV steroids during this admission and I'm not sure if she got IV steroids in the past per the nurse she wanted got the by mouth steroids. Currently she is not on the by mouth steroids and she is refusing to be on the by mouth steroids and she prefers to be on IV. We'll look into if she was on steroids in which the dose and whether she was on by mouth or IV which I would assume she was on PO. Will defer the rest of the medical measure the primary team patient is currently on Dilaudid when necessary started by the ED team, meloxicam. She is also on Lyrica 75 mg 1 tablet 3 times a day Defer the rest of the medical measure the primary team The plan discussed with the patient and nurse Thank you for consultation Time with Patient: Greater than 30
--- NOTE | 2023-03-08 13:13 | P.GSCN ---
History of Present Illness Consult date: 03/08/23 Reason for Consult: Temporal biopsy. Rule out temporal arteritis Requesting physician: Ashish Del Angel History of present illness: This is a pleasant 77-year-old female who presented to the emergency department 2 nights ago with complaints of headache. Her past medical history includes hypertension, GERD, melanoma, and back surgery. She has been complaining of a headache that has been ongoing for several months, occurring mostly in the temporal, frontal, and occipital regions. She was seen during her last admissio n on 01/29/2023 by vascular surgery for possible temporal arteritis requesting temporal biopsy. At that time she came in with a sed rate of 101, she was started on IV steroids which improved her symptoms and discharged home on 60 mg of prednisone taper dose. States she had taken it over the last several weeks however her PCPs nurse practitioner discontinued it a few days early due to high blood pressure and changes in her eyes. Patient states when she was off of the steroids she started getting the headaches again and 3 days ago the headaches were severe and she came to the emergency department for further evaluation. She denies any visual changes, no focal deficits. States it is greatest on the right, feels like a "lightening bolt" and is intermittent. She also states that will be behind her eyes and in the back of her head inside of her head. She states that she has not followed up with anybody other than her PCP for her headaches once discharge. She has not seen a neurologist in the outpatient setting regarding the headaches and did not follow-up with vascular surgery and she states the symptoms had improved. On this admission patient was found to have a ESR of 60 with a repeat at 48. Neurology was consulted who is following patient, trying to obtain a recent MRI done at an outside facility. Neurology is requesting vascular surgery to do a temporal biopsy to rule out temporal arteritis. Review of Systems A 14 point review systems was completed all pertinent positives and negatives as stated in the HPI. 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 and lower back pain with nerve pain, rt ear "plugged" History of Any Multi-Drug Resistant Organisms: None Reported Past Surgical History: Adenoidectomy, Back Surgery, Hernia Repair, Orthopedic Surgery, Tonsillectomy Additional Past Surgical History / Comment(s): melanoma removed left buttock, 3 back surgeries with screws in place, ganglion cyst sx Past Anesthesia/Blood Transfusion Reactions: No Reported Reaction Past Psychological History: No Psychological Hx Reported Smoking Status: Never smoker Past Alcohol Use History: Rare Past Drug Use History: None Reported - Past Family History Mother Family Medical History: Cancer Additional Family Medical History / Comment(s): colon Brother(s) Family Medical History: Cancer Additional Family Medical History / Comment(s): brain tumor tx chemo and radiation Medications and Allergies Home Medications Medication Instructions Recorded Confirmed Type Cyclobenzaprine [Flexeril] 5 mg PO BID PRN 01/29/23 03/07/23 History Metoprolol Succinate (ER) [Toprol 100 mg PO DAILY 01/29/23 03/07/23 History XL] Pregabalin [Lyrica] 75 mg PO TID 01/29/23 03/07/23 History QUEtiapine FUMARATE 50 mg PO HS 01/29/23 03/07/23 History Sertraline [Zoloft] 25 mg PO HS 01/29/23 03/07/23 History Calcium Carbonate [Tums] 500 mg PO QID PRN tab 01/30/23 03/07/23 Rx Celecoxib 200 mg PO DAILY 30 Days #30 cap 01/30/23 03/07/23 Rx Yvekvsu-Yzlb-Drbq [id number] 1 tab PO Q4HR PRN 03/07/23 03/07/23 History [Excedrin] Allergies Allergy/AdvReac Type Severity Reaction Status Date / Time codeine Allergy Itching Verified 03/07/23 10:59 Surgical - Exam Vital Signs Temp Pulse Resp BP Pulse Ox 97.8 F 99 18 154/114 97 03/06/23 21:49 03/06/23 21:49 03/06/23 21:49 03/06/23 21:49 03/06/23 21:49 General appearance: The patient is alert, oriented, appears in no acute distress. HET: Head is normocephalic and atraumatic. Pupils are equal and reactive. Tender to palpation along the right temporal region. Neck: Supple. Heart: Regular. Lungs: Equal expansion, normal respiratory effort. Abdomen: Soft, nontender, nondistended. Extremities: Normal skin color and turgor. Neurological: No focal deficits. Results - Labs 03/06/23 22:18 03/06/23 22:18 Abnormal Lab Results - Last 24 Hours (Table) 03/07/23 Range/Units 12:45 ESR 48 H (0-30) mm/Hr Assessment and Plan Assessment: 1. Chronic headache occurring in the temporal, frontal and occipital region 2. Elevated ESR 3. Hypertension Plan: 1. Tentatively plan for right temporal artery biopsy on 10/08/2022 2. Nothing by mouth after midnight on Wednesday 3. Rest of the medical management per primary medical team Thank you for this consultation, we will continue to follow. The impression and plan of care has been dictated as directed. I performed a history and examination of this patient, discussed the same with the dictator. I agree with the dictator's note ,documented as a scribe. Any additional findings or plans will be noted.
--- NOTE | 2023-03-08 17:31 | P.PN ---
Subjective Progress Note Date: 03/08/23 This is a 77-year-old female admitted with intractable headache recently treated with IV steroids, inpatient on 01/29/2023,evaluated by vascular surgery and discharged on oral prednisone taper, suspicious for temporal arteritis. Reports her primary discontinued her oral steroids after about 3 weeks as she was unable to tolerate the side effects of the steroids. Reports she had dizziness, positive edema, hypertension, visual changes.This morning patient complains of headache in the frontal area as well as bilateral temples. Reports spasming more so in the right taoist. Denies any lightheadedness, dizziness or focal deficits. Denies visual deficits. ESR 60, repeat 48. Recent MRI performed outside [facility], being obtained. Denies chest pain, palpitations or shortness of breath. Renal function stable. Hypertensive with IV fluids currently running at 75 MLS an hour. Objective - Vital Signs Vital signs: Vital Signs Temp 98.2 F 03/08/23 07:00 Pulse 82 03/08/23 07:00 Resp 16 03/08/23 07:00 BP 168/112 03/08/23 07:00 Pulse Ox 94 L 03/08/23 02:00 FiO2 Intake & Output 03/07/23 03/08/23 03/08/23 18:59 06:59 18:59 Other: Voiding Method Toilet Toilet # Voids 3 1 - Exam GENERAL: The patient is alert and oriented x3, sitting up in bed, no acute distress. HEENT: Normocephalic, Pupils are round and equally reacting to light. EOMI. No scleral icterus. No conjunctival pallor. CARDIOVASCULAR: S1 and S2 present. No murmurs, rubs, or gallops. PULMONARY: Unlabored Chest is clear to auscultation, no wheezing or crackles. ABDOMEN: Soft, nontender, nondistended, normoactive bowel sounds. No palpable organomegaly. EXTREMITIES: No cyanosis, clubbing, or pedal edema. NEUROLOGICAL: Gross neurological examination did not reveal any focal deficits. SKIN: No rashes. Warm and dry - Labs CBC & Chem 7: 03/06/23 22:18 03/06/23 22:18 Labs: Abnormal Lab Results - Last 24 Hours (Table) 03/07/23 Range/Units 12:45 ESR 48 H (0-30) mm/Hr Assessment and Plan Assessment: Chronic Cephalgia, elevated ESR, possible temporal arteritis History of back surgery Hypertension Gastroesophageal reflux disease Neuropathy Plan: Continue on current medication regime ,monitoring and symptomatic treatment. Hypertensive, IV fluids KVO'd.HCTZ ordered. Neurology workup in progress. Temporal biopsy scheduled for Wednesday per Vascular surgery. The impression and plan of care has been dictated as directed. : I performed a history and examination of this patient, discussed the same with the dictator. I agree with the dictator's note ,documented as a scribe. Any additional findings or plans will be noted.
[2023-03-08] MEDS: QUEtiapine 50 MG TAB PO SCH (21:26)
[2023-03-08] MEDS: SERTRALINE 25 MG TAB PO SCH (21:26)
[2023-03-08 23:31] LABS: Rheumatoid Factor, Qnt <15 IU/mL (0-15)
[2023-03-09] MEDS: HYDROmorphone 0.5 MG/0.5 ML SYRINGE IVP PRN ×4 (08:09→19:22)
[2023-03-09] MEDS ORDERED: MAGNESIUM SULFATE-D5W PMX 1 GM in DEXTROSE/WATER 1 100ML.BAG IVPB ONE (08:40)
[2023-03-09] MEDS: PANTOPRAZOLE 40 MG/10 ML VIAL IVP SCH ×2 (09:06→20:14)
[2023-03-09] MEDS ORDERED: METOCLOPRAMIDE 5 MG/ML 2 ML VIAL IVP PRN (09:40)
[2023-03-09] MEDS ORDERED: ONDANSETRON 4 MG/2 ML VIAL IVP PRN (09:40)
[2023-03-09 11:00] LABS: Basophils % (A) 0 %; Eosinophils % (A) 0 %; HCT 35.2 % (34.0-46.0); HGB 11.6 gm/dL (11.4-16.0); Lymphocytes # (A) 1.4 k/uL (1.0-4.8); Lymphocytes % (A) 16 %; MCHC 32.8 g/dL (31.0-37.0); MCV 91.3 fL (80.0-100.0); Mean Platelet Volume 8.4; Monocytes # (A) 0.4 k/uL (0-1.0); Monocytes % (A) 4 %; Neutrophils # (A) 6.9 k/uL (1.3-7.7); Neutrophils % (A) 78 %; Platelet Count 554 k/uL (150-450); RBC 3.86 m/uL (3.80-5.40); RDW 15.6 % (11.5-15.5); WBC 8.9 k/uL (3.8-10.6)
[2023-03-09 11:14] LABS: African American GFR (CKD) >90 (>60 ml/min/1.73 sqM); Anion Gap 10 mmol/L; Blood Urea Nitrogen 7 mg/dL (7-17); Calcium 9.4 mg/dL (8.4-10.2); Carbon Dioxide 28 mmol/L (22-30); Chloride 96 mmol/L (98-107); Glucose 126 mg/dL (74-99); Non-African American GFR(CKD) >90 (>60 ml/min/1.73 sqM); Potassium 3.8 mmol/L (3.5-5.1); Sodium 134 mmol/L (137-145)
[2023-03-09] MEDS: METOPROLOL SUCCINATE (ER) 100 MG TAB.ER.24H PO SCH (11:52)
[2023-03-09] MEDS: MELOXICAM 7.5 MG TAB PO SCH (11:52)
[2023-03-09] MEDS: PREGABALIN 75 MG CAP PO SCH ×3 (11:52→20:13)
[2023-03-09] MEDS: hydroCHLOROthiazide 25 MG TAB PO SCH (11:53)
[2023-03-09] MEDS: LORATADINE-PSEUDOEPH 5-120 MG 1 EACH TAB.ER.12H PO SCH ×2 (11:53→20:13)
--- NOTE | 2023-03-09 13:49 | P.PN ---
Subjective Progress Note Date: 03/09/23 Principal diagnosis: Headaches Patient seen and examined today as a follow-up for headache. Upon seeing and evaluating patient she is holding her head in her hands. She states she had her headache is 10 out of 10 on her right frontal region. She denies any visual changes or focal deficits. No nausea or vomiting at this time but has had some nausea. Objective - Vital Signs Vital signs: Vital Signs Temp 98.2 F 03/09/23 07:00 Pulse 101 H 03/09/23 07:00 Resp 18 03/09/23 07:00 BP 151/108 03/09/23 07:00 Pulse Ox 92 L 03/09/23 07:00 FiO2 Intake & Output 03/08/23 03/09/23 03/09/23 18:59 06:59 18:59 Intake Total 550 Balance 550 Intake: Oral 550 Other: Voiding Method Toilet Toilet # Voids 3 1 # Bowel Movements 1 - Exam General appearance: The patient is alert, oriented, holding her head in her h ands. HET: Head is normocephalic and atraumatic. Pupils are equal and reactive. Neck: Supple. Abdomen: Soft, nondistended. Extremities: Normal skin color and turgor. Neurological: No focal deficits. - Labs CBC & Chem 7: 03/09/23 10:19 03/09/23 10:19 Assessment and Plan Assessment: 1. Chronic headache occurring in the temporal, frontal and occipital region, greater on right than left 2. Elevated ESR 3. Hypertension Plan: 1. Tentatively plan for right temporal artery biopsy on 03/10/2023 2. Nothing by mouth after midnight 3. Continue with workup from neurology 4. Rest of the medical management per primary medical team Thank you for this consultation, we will continue to follow. The impression and plan of care has been dictated as directed. Dr. Mascorro I performed a history and examination of this patient, discussed the same with the dictator. I agree with the dictator's note ,documented as a scribe. Any additional findings or plans will be noted.
[2023-03-09] MEDS ORDERED: CYANOCOBALAMIN 1,000 MCG/ML 1 ML VIAL IM ONE (15:18)
--- NOTE | 2023-03-09 15:29 | P.PN ---
Subjective Progress Note Date: 03/09/23 On follow-up with the patient and she feels her headache is mild. Denies of any visual disturbance, any focal weakness numbness. She feels about the same otherwise. Seems that she has had a temporal artery biopsy scheduled tomorrow. Upon reviewing the her workup seems that she was close to 4 weeks of by mouth steroids. Seems that she was prescribed 28 days of prednisone with a taper on 01/30/2023 according to the nurse and the she has finished her regimen last week according to the patient she was notified by her primary's does not need that the steroids the last 3 days. She did not get IV steroids. Objective - Vital Signs Vital signs: Vital Signs Temp 98.5 F 03/09/23 14:10 Pulse 72 03/09/23 14:10 Resp 12 03/09/23 14:10 BP 131/85 03/09/23 14:10 Pulse Ox 89 L 03/09/23 14:10 FiO2 Intake & Output 03/08/23 03/09/23 03/09/23 18:59 06:59 18:59 Intake Total 550 118 Balance 550 118 Intake: Oral 550 118 Other: Voiding Method Toilet Toilet # Voids 3 1 1 # Bowel Movements 1 - Exam GENERAL: The patient is lying in bed and is not in acute distress. HENT: Supple neck. NEUROLOGICAL: Higher mental function: The patient is awake, alert, oriented to self, place and time. Patient is following commands. No aphasia and no neglect. Cranial nerves: The pupils are round, equal and reactive to light and accommodation. Visual rincon are full to confrontation throughout. Extraocular movement is intact no nystagmus is noted. Facial sensation is normal to touch throughout. The facial strength is normal throughout. Hearing is mildly decreased bilaterally to bilaterally to hand rub. Tongue is midline and moved [id number] without any difficulty. No dysarthria is noted. Shoulder shrug is normal bilaterally. Motor: Gait is normal. The strength is left lower is 5- and appears chronic. Otherwise 5 over 5 throughout. Normal tone and bulk. Cerebellum: Normal finger to nose bilaterally. Sensation: Sensation is normal to touch throughout. Reflexes (right/left): Left lower is 0 and per patient from her back surgery. Otherwise 2+ throughout. Plantars are mute bilaterally. Some of the workup during his hospital visit consisted of: ESR 60 repeat ESR yesterday was 48.this seems on 01/29/2023 her ESR was 101. CRP is 4.7. White blood cell is within normal limits. calcium is 9.1, phosphorus 2.8, magnesium 2.0, sodium is 136. Vitamin B-12 of 262 Serum folate is 14.20 TSH is 3.780 MARIANO is negative. RF is <15. It seems that the patient had a CT of the head on 01/29/2023 and reported as age -related atrophic and chronic small vessel ischemic change without acute intracranial process seen at this time. she had CT of the head because of the headache. Patient had MRI the brain and cervical spine at [facility]. MRI the brain was performed on 01/01/2023 for the headache and it's reported as moderate chronic small vessel ischemic disease. Single punctate focus of calcification/mineralization versus chronic hemorrhage in the right central semiovalve. She had MRI of the cervical spine in 12/11/2022 which was multiple disc bulges resulting mild/moderate to severe neuroforaminal stenosis on the C2 to T1 also there is impingement on the nerve roots. - Labs CBC & Chem 7: 03/09/23 10:19 03/09/23 10:19 Labs: Abnormal Lab Results - Last 24 Hours (Table) 03/09/23 03/09/23 Range/Units 10:19 10:19 RDW 15.6 H (11.5-15.5) % Plt Count 554 H (150-450) k/uL Sodium 134 L (137-145) mmol/L Chloride 96 L (98-107) mmol/L Glucose 126 H (74-99) mg/dL Assessment and Plan Assessment: this is a 77-year-old woman who is been having headache for the past several months and she feels the headache is over the frontal temporal region as well as occipital is seems that her ESR was elevated as high as 101 on 01/29/2023 which is trending down 248 and she feels the headache is improving with steroids. Cephalgia with elevated ESR: concern for temporal arteritis. ESR was as high as a 101 currently is 48 rule out other vasculitis Low normal vitamin B12 of 262 history of lower back surgery History of osteoporosis Hypertension Plan: * I consulted vascular surgery team for temporal biopsy and scheduled for po ssible biopsy tomorrow. * Patient had MRI the brain and cervical spine at [facility]. * MRI the brain was performed on 01/01/2023 for the headache and it's reported as moderate chronic small vessel ischemic disease. Single punctate focus of calcification/mineralization versus chronic hemorrhage in the right central semiovalve. * She had MRI of the cervical spine in 12/11/2022 which was multiple disc bulges resulting mild/moderate to severe neuroforaminal stenosis on the C2 to T1 also there is impingement on the nerve roots. * Patient is refusing repeat imaging at this time. * Seems the patient had four-week regimen of by mouth prednisone with tapering oral steroids on 01/30/2023 and she finished last week. According to the patient the she was notified by her physician she did not need the last 3 days of steroids. * I will obtain a repeat ESR and CRP * For the very low normal vitamin B12 I gave her IM 1000mcg vitamin B12 for today and tomorrow then after that PO 1000 g daily * patient is currently on Dilaudid when necessary started by the ED team, meloxicam. She is also on Lyrica 75 mg 1 tablet 3 times a day * Defer the rest of the medical measure the primary team The plan discussed with the patient and nurse Time with Patient: Less than 30
--- NOTE | 2023-03-09 16:01 | P.PN ---
Subjective Progress Note Date: 03/09/23 This is a 77-year-old female admitted with intractable headache recently treated with IV steroids, inpatient on 01/29/2023,evaluated by vascular surgery and discharged on oral prednisone taper, suspicious for temporal arteritis. Reports her primary discontinued her oral steroids after about 3 weeks as she was unable to tolerate the side effects of the steroids. Reports she had dizziness, positive edema, hypertension, visual changes.This morning patient complains of headache in the frontal area as well as bilateral temples. Reports spasming more so in the right advent. Denies any lightheadedness, dizziness or focal deficits. Denies visual deficits. ESR 60, repeat 48. Recent MRI performed outside [facility], being obtained. Denies chest pain, palpitations or shortness of breath. Renal function stable. Hypertensive with IV fluids currently running at 75 MLS an hour. 03/09/2023 complains of significant diffuse headache radiating across the frontal-temporal region,accompanied by nausea ,recently medicated with Dilaudid. Denies lightheadedness dizziness or visual disturbances. Denies focal deficits Scheduled for temporal biopsy tomorrow with vascular surgery. Objective - Vital Signs Vital signs: Vital Signs Temp 98.5 F 03/09/23 14:10 Pulse 72 03/09/23 14:10 Resp 12 03/09/23 14:10 BP 131/85 03/09/23 14:10 Pulse Ox 89 L 03/09/23 14:10 FiO2 Intake & Output 03/08/23 03/09/23 03/09/23 18:59 06:59 18:59 Intake Total 550 118 Balance 550 118 Intake: Oral 550 118 Other: Voiding Method Toilet Toilet # Voids 3 1 1 # Bowel Movements 1 - Exam GENERAL: The patient is alert and oriented x3, lying on her left side,holding her head with her leg hanging off the bed HEENT: Normocephalic, Pupils are round and equally reacting to light.MMM. CARDIOVASCULAR: S1 and S2 present. No murmurs, rubs, or gallops. PULMONARY: Unlabored, equal air entry, CTA. ABDOMEN: Soft, nontender, nondistended, +BS, No guarding. EXTREMITIES: No cyanosis, clubbing, or pedal edema. NEUROLOGICAL: Gross neurological examination did not reveal any focal deficits. SKIN: No rashes. Warm and dry - Labs CBC & Chem 7: 03/09/23 10:19 03/09/23 10:19 Labs: Abnormal Lab Results - Last 24 Hours (Table) 03/09/23 03/09/23 Range/Units 10:19 10:19 RDW 15.6 H (11.5-15.5) % Plt Count 554 H (150-450) k/uL Sodium 134 L (137-145) mmol/L Chloride 96 L (98-107) mmol/L Glucose 126 H (74-99) mg/dL Assessment and Plan Assessment: Chronic Cephalgia,frontal-temporal region,elevated ESR History of back surgery Hypertension Gastroesophageal reflux disease Neuropathy Plan: Continue on current medication regime ,monitoring and symptomatic treatment. Magnesium IV push ordered for headache in addition to Reglan and Zofran for nausea.outpatient brain MRI at another facility being retrieved, neuro workup in progress .Temporal biopsy scheduled for Wednesday per Vascular surgery,NPO at midnight. The impression and plan of care has been dictated as directed. : I performed a history and examination of this patient, discussed the same with the dictator. I agree with the dictator's note ,documented as a scribe. Any additional findings or plans will be noted.
[2023-03-09] MEDS ORDERED: Potassium Replacement Protocol 1 EACH MISC MISCELLANE PRN (16:02)
[2023-03-09] MEDS: SERTRALINE 25 MG TAB PO SCH (20:13)
[2023-03-09] MEDS: QUEtiapine 50 MG TAB PO SCH (20:13)
[2023-03-10] MEDS: HYDROmorphone 0.5 MG/0.5 ML SYRINGE IVP PRN ×5 (03:53→22:49)
[2023-03-10] MEDS ORDERED: CYANOCOBALAMIN 1,000 MCG/ML 1 ML VIAL IM ONE (09:00)
[2023-03-10] MEDS: hydroCHLOROthiazide 25 MG TAB PO SCH (09:09)
[2023-03-10] MEDS: LORATADINE-PSEUDOEPH 5-120 MG 1 EACH TAB.ER.12H PO SCH ×2 (09:09→20:40)
[2023-03-10] MEDS: MELOXICAM 7.5 MG TAB PO SCH (09:09)
[2023-03-10] MEDS: METOPROLOL SUCCINATE (ER) 100 MG TAB.ER.24H PO SCH (09:09)
[2023-03-10] MEDS: PREGABALIN 75 MG CAP PO SCH ×3 (09:09→20:40)
[2023-03-10] MEDS: PANTOPRAZOLE 40 MG/10 ML VIAL IVP SCH ×2 (09:10→20:40)
--- NOTE | 2023-03-10 10:10 | P.PN ---
Subjective Progress Note Date: 03/10/23 This is a 77-year-old female admitted with intractable headache recently treated with IV steroids, inpatient on 01/29/2023,evaluated by vascular surgery and discharged on oral prednisone taper, suspicious for temporal arteritis. Reports her primary discontinued her oral steroids after about 3 weeks as she was unable to tolerate the side effects of the steroids. Reports she had dizziness, positive edema, hypertension, visual changes.This morning patient complains of headache in the frontal area as well as bilateral temples. Reports spasming more so in the right taoism. Denies any lightheadedness, dizziness or focal deficits. Denies visual deficits. ESR 60, repeat 48. Recent MRI performed outside [facility], being obtained. Denies chest pain, palpitations or shortness of breath. Renal function stable. Hypertensive with IV fluids currently running at 75 MLS an hour. 03/09/2023 complains of significant diffuse headache radiating across the frontal-temporal region,accompanied by nausea ,recently medicated with Dilaudid. Denies lightheadedness dizziness or visual disturbances. Denies focal deficits Scheduled for temporal biopsy tomorrow with vascular surgery. 03/10/2023 NPO, temporal biopsy scheduled for today. Reports requires Dilaudid around the clock for her ongoing frontal/temporal headache. Denies blurred vision or focal deficits this morning. Denies chest pain, palpitations or shortness of breath. Rheumatoid factor less than 15, MARIANO negative. Objective - Vital Signs Vital signs: Vital Signs Temp 97.5 F L 03/10/23 07:10 Pulse 68 03/10/23 07:10 Resp 16 03/10/23 07:10 BP 153/87 03/10/23 07:10 Pulse Ox 96 03/10/23 07:10 FiO2 Intake & Output 03/09/23 03/10/23 03/10/23 18:59 06:59 18:59 Intake Total 118 Balance 118 Intake: Oral 118 Other: Voiding Method Toilet # Voids 1 1 - Exam GENERAL: The patient is alert and oriented x3, sitting up in bed, no acute distress. HEENT: Normocephalic, Pupils are round and equally reacting to light. Neck supple, no JVD. CARDIOVASCULAR: S1 and S2 present. No murmurs, rubs, or gallops. PULMONARY: Unlabored, equal air entry, CTA. ABDOMEN: Soft, nontender, nondistended, +BS, No guarding. EXTREMITIES: No cyanosis, clubbing, or pedal edema. NEUROLOGICAL: Gross neurological examination did not reveal any focal deficits. SKIN: No rashes. Warm and dry. - Labs CBC & Chem 7: 03/09/23 10:19 03/09/23 10:19 Labs: Abnormal Lab Results - Last 24 Hours (Table) 03/09/23 03/09/23 03/09/23 Range/Units 10:19 10:19 10:19 RDW 15.6 H (11.5-15.5) % Plt Count 554 H (150-450) k/uL ESR 53 H (0-30) mm/Hr Sodium 134 L (137-145) mmol/L Chloride 96 L (98-107) mmol/L Glucose 126 H (74-99) mg/dL C-Reactive Protein (0.00-0.80) mg/dL 03/09/23 Range/Units 10:19 RDW (11.5-15.5) % Plt Count (150-450) k/uL ESR (0-30) mm/Hr Sodium (137-145) mmol/L Chloride (98-107) mmol/L Glucose (74-99) mg/dL C-Reactive Protein 5.10 H (0.00-0.80) mg/dL Assessment and Plan Assessment: Chronic Cephalgia,frontal-temporal region,elevated ESR History of back surgery Hypertension Gastroesophageal reflux disease Neuropathy Plan: Continue on current medication regime ,monitoring and symptomatic treatment. NPO,temporal biopsy scheduled for today. Follow closely with n eurology and vascular surgery. The impression and plan of care has been dictated as directed. : I performed a history and examination of this patient, discussed the same with the dictator. I agree with the dictator's note ,documented as a scribe. Any additional findings or plans will be noted.
[2023-03-10] MEDS ORDERED: LACTATED RINGERS 1,000 ML IV ONE (12:01)
[2023-03-10] MEDS ORDERED: fentaNYL (PF) 50 MCG/ML 2 ML AMP IVP ONE (12:15)
[2023-03-10] MEDS ORDERED: FAMOTIDINE 20 MG/2 ML VIAL IVP ONE (12:15)
[2023-03-10] MEDS ORDERED: ONDANSETRON 4 MG/2 ML VIAL IVP ONE (12:15)
[2023-03-10] MEDS ORDERED: DEXAMETHASONE SOD PHOSPHATE 4 MG/ML 1 ML VIAL IVP ONE (12:15)
[2023-03-10] MEDS ORDERED: MIDAZOLAM 2 MG/2 ML VIAL ONE (12:31)
[2023-03-10] MEDS ORDERED: GLYCOPYRROLATE 0.2 MG/ML 2 ML VIAL ONE (12:31)
[2023-03-10] MEDS ORDERED: KETAMINE HCL IN 0.9 % NACL 50 MG/5 ML SYRINGE ONE (12:31)
[2023-03-10] MEDS ORDERED: PHENYLEPHRINE 10 MG/ML 5 ML VIAL ONE (12:31)
[2023-03-10] MEDS ORDERED: fentaNYL (PF) 50 MCG/ML 2 ML AMP ONE (12:31)
[2023-03-10] MEDS ORDERED: PROPOFOL 10 MG/ML 20 ML VIAL IV ONE (12:31)
[2023-03-10] MEDS ORDERED: LIDOCAINE 1% INJ 10MG/ML (30 ML VIAL-PF) SQ ONE ×2 (13:02)
--- NOTE | 2023-03-10 13:36 | P.OP ---
Date of Procedure: 03/10/23 Description of Procedure: Preoperative diagnosis: Headaches, rule out temporal arteritis Postoperative diagnosis: Same Procedure: Right temporal artery biopsy Surgeon: Anneliese Zamorano D.O. EBL: Less than 5 mL IV fluids: See anesthesia records Urine output: Not measured Drains: None Complications: None immediately apparent Condition: Stable to recovery Operative indication and findings: Patient is a 77-year-old female who recently began having increasing and worsening headaches. Through the evaluation and workup was recommended undergo temporal artery biopsy. Risks and benefits were discussed. They present for intervention today. Procedure in detail: The patient was taken to the operative suite and placed in supine position. The side of the face was prepped and draped in usual sterile fashion. A preprocedure timeout was performed, all parties are in agreement. The area of the greatest pulse was anesthetized at the temporal region. Incision was made and carried onto the subcuticular tissue using electrocautery. The artery was identified. It was dissected free proximally and distally. It was ligated with 3-0 silk ties. The 1.5 cm portion of the artery was excised and sent for pathology. The area was then irrigated. Hemostasis was achieved electrocautery. The deep dermal tissues were reapproximated with interrupted sutures of 3-0 Vicryl. The skin was reprepped with running 5-0 Monocryl in subcu cuticular fashion. Antibiotic ointment was placed
[2023-03-10] MEDS ORDERED: hydrALAZINE HCL 20 MG/ML 1 ML VIAL IV ONE (13:38)
--- NOTE | 2023-03-10 15:49 | P.PN ---
Subjective Progress Note Date: 03/10/23 I am following-up with patient and she stated she has mild headache. She denies of any new changes. Denies of any visual loss, any jaw pain, focal weakness. Today she had temporal artery biopsy scheduled. Objective - Vital Signs Vital signs: Vital Signs Temp 97 F L 03/10/23 13:24 Pulse 81 03/10/23 14:00 Resp 14 03/10/23 14:00 BP 134/84 03/10/23 14:00 Pulse Ox 93 L 03/10/23 14:00 FiO2 Intake & Output 03/09/23 03/10/23 03/10/23 18:59 06:59 18:59 Intake Total 118 900 Output Total 1 Balance 118 899 Intake: IV 900 Oral 118 Output: Estimated Blood Loss 1 Other: Voiding Method Toilet # Voids 1 1 - Exam GENERAL: The patient is lying in bed and is not in acute distress. HENT: Supple neck. NEUROLOGICAL: Higher mental function: The patient is awake, alert, oriented to self, place and time. Patient is following commands. No aphasia and no neglect. Cranial nerves: The pupils are round, equal and reactive to light and accommodation. Visual rincon are full to confrontation throughout. Extraocular movement is intact no nystagmus is noted. Facial sensation is normal to touch throughout. The facial strength is normal throughout. Hearing is mildly decreased bilaterally to bilaterally to hand rub. Tongue is midline and moved [id number] without any difficulty. No dysarthria is noted. Shoulder shrug is normal bilaterally. Motor: Gait is normal. The strength is left lower is 5- and appears chronic. Otherwise 5 over 5 throughout. Normal tone and bulk. Cerebellum: Normal finger to nose bilaterally. Sensation: Sensation is normal to touch throughout. Reflexes (right/left): Left lower is 0 and per patient from her back surgery. Otherwise 2+ throughout. Plantars are mute bilaterally. Some of the workup during his hospital visit consisted of: ESR 60 repeat ESR yesterday was 48.this seems on 01/29/2023 her ESR was 101. Recent ESR is 53 CRP is 4.7. Repeat is 5.10 White blood cell is within normal limits. calcium is 9.1, phosphorus 2.8, magnesium 2.0, sodium is 136. Vitamin B-12 of 262 Serum folate is 14.20 TSH is 3.780 MARIANO is negative. RF is <15. It seems that the patient had a CT of the head on 01/29/2023 and reported as age-related atrophic and chronic small vessel ischemic change without acute intracranial process seen at this time. she had CT of the head because of the headache. Patient had MRI the brain and cervical spine at [facility]. MRI the brain was performed on 01/01/2023 for the headache and it's reported as moderate chronic small vessel ischemic disease. Single punctate focus of calcification/mineralization versus chronic hemorrhage in the right central semiovalve. She had MRI of the cervical spine in 12/11/2022 which was multiple disc bulges resulting mild/moderate to severe neuroforaminal stenosis on the C2 to T1 also there is impingement on the nerve roots. - Labs CBC & Chem 7: 03/09/23 10:19 03/09/23 10:19 Labs: Abnormal Lab Results - Last 24 Hours (Table) 03/09/23 03/09/23 Range/Units 10:19 10:19 ESR 53 H (0-30) mm/Hr C-Reactive Protein 5.10 H (0.00-0.80) mg/dL Assessment and Plan Assessment: this is a 77-year-old woman who is been having headache for the past several months and she feels the headache is over the frontal temporal region as well as occipital is seems that her ESR was elevated as high as 101 on 01/29/2023 which is trending down 248 and she feels the headache is improving with steroids. Cephalgia with elevated ESR: concern for temporal arteritis. ESR was as high as a 101 currently is 48-->53 rule out other vasculitis. Low normal vitamin B12 of 262 history of lower back surgery History of osteoporosis Hypertension Plan: * I consulted vascular surgery team for temporal biopsy and scheduled for today. * Patient had MRI the brain and cervical spine at [facility]. * MRI the brain was performed on 01/01/2023 for the headache and it's reported as moderate chronic small vessel ischemic disease. Single punctate focus of calcification/mineralization versus chronic hemorrhage in the right central semiovalve. * She had MRI of the cervical spine in 12/11/2022 which was multiple disc bulges resulting mild/moderate to severe neuroforaminal stenosis on the C2 to T1 also there is impingement on the nerve roots. * Patient is refusing repeat MRI but is acceptance of CTA head and neck which will try to obtain post biopsy. * Seems the patient had four-week regimen of by mouth prednisone with tapering oral steroids on 01/30/2023 and she finished last week. According to the patient the she was notified by her physician she did not need the last 3 days of steroids. * Recommend the patient to follow-up with orthopedic team for her cervical spondylosis and recommend following-up with neurologist and sealant mixer as outpatient within 2-3 weeks. * For the very low normal vitamin B12 I gave her IM 1000mcg vitamin B12 for two days starting 03/09/23 then after that PO 1000 g daily * patient is currently on Dilaudid when necessary started by the ED team, meloxicam. She is also on Lyrica 75 mg 1 tablet 3 times a day * Defer the rest of the medical measure the primary team The plan discussed with the patient and nurse Time with Patient: Less than 30
[2023-03-10] MEDS ORDERED: methylPREDNISolone SOD SUCCI 125 MG/2 ML VIAL IV ONE ×2 (17:15→18:00)
[2023-03-10] MEDS ORDERED: FAMOTIDINE 20 MG/2 ML VIAL IV ONE (18:00)
[2023-03-10] MEDS ORDERED: diphenhydrAMINE 50 MG/ML 1 ML VIAL IVP ONE (18:00)
[2023-03-10] MEDS: SERTRALINE 25 MG TAB PO SCH (20:40)
[2023-03-10] MEDS: QUEtiapine 50 MG TAB PO SCH (20:40)
--- NOTE | 2023-03-11 00:48 | CT ---
EXAM: CT Head Without Intravenous Contrast CLINICAL HISTORY: ITS.REASON CT Reason: headache TECHNIQUE: Axial computed tomography images of the head/brain without intravenous contrast. CTDI is 48.8 mGy and DLP is 1172 mGy-cm. This CT exam was performed using one or more of the following dose reduction techniques: automated exposure control, adjustment of the mA and/or kV according to patient size, and/or use of iterative reconstruction technique. COMPARISON: 01/29/2023 FINDINGS: Brain: No hemorrhage, herniation, or mass effect. Chronic microvascular ischemic changes. Ventricles: No hydrocephalus. Age related cerebral volume loss. Bones/joints: Unremarkable. Soft tissues: Unremarkable. Sinuses: Unremarkable. Mastoid air cells: Clear. IMPRESSION: No acute hemorrhage, hydrocephalus, or mass effect.
--- NOTE | 2023-03-11 01:14 | CT ---
EXAM: CT Angiography Head With Intravenous Contrast CLINICAL HISTORY: ITS.REASON CT Reason: headache TECHNIQUE: Axial computed tomographic angiography images of the head with intravenous contrast. CTDI is 38 mGy and DLP is 393.9 mGy-cm. This CT exam was performed using one or more of the following dose reduction techniques: automated exposure control, adjustment of the mA and/or kV according to patient size, and/or use of iterative reconstruction technique. MIP reconstructed images were created and reviewed. COMPARISON: No relevant prior studies available. FINDINGS: Right internal carotid artery: Intracranial segment is patent with no significant stenosis. No aneurysm. Right anterior cerebral artery: No occlusion or significant stenosis. No aneurysm. Right middle cerebral artery: Moderate right MCA stenosis with irregularity of the vessel. No aneurysm. Right posterior cerebral artery: No occlusion or significant stenosis. No aneurysm. Right vertebral artery: Unremarkable. Left internal carotid artery: Intracranial segment is patent with no significant stenosis. No aneurysm. Left anterior cerebral artery: No occlusion or significant stenosis. No aneurysm. Left middle cerebral artery: No occlusion or significant stenosis. No aneurysm. Left posterior cerebral artery: No occlusion or significant stenosis. No aneurysm. Left vertebral artery: Unremarkable. Basilar artery: No occlusion or significant stenosis. No aneurysm. IMPRESSION: Moderate right MCA stenosis with irregularity of the vessel likely due to underlying atherosclerosis. EXAM: CT Angiography Neck With Intravenous Contrast CLINICAL HISTORY: ITS.REASON CT Reason: headache TECHNIQUE: Axial computed tomographic angiography images of the neck with intravenous contrast. CTDI is 38 mGy and DLP is 393.9 mGy-cm. This CT exam was performed using one or more of the following dose reduction techniques: automated exposure control, adjustment of the mA and/or kV according to patient size, and/or use of iterative reconstruction technique. MIP reconstructed images were created and reviewed. COMPARISON: No relevant prior studies available. FINDINGS: VASCULATURE: Right common carotid artery: No significant stenosis. No dissection. Right internal carotid artery: Extracranial has no significant stenosis. No dissection. Right vertebral artery: No significant stenosis. No dissection. Left common carotid artery: No significant stenosis. No dissection. Left internal carotid artery: Extracranial has no significant stenosis. No dissection. Left vertebral artery: No significant stenosis. No dissection. NECK: Bones/joints: No acute fracture. No dislocation. 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 CAROTID STENOSIS REFERENCE USING NASCET CRITERIA: % ICA stenosis = (1 - narrowest ICA diameter/diameter of distal cervical ICA) x 100. Mild - <50% stenosis. Moderate - 50-69% stenosis. Severe - 70-94% stenosis. Near occlusion - 95-99% stenosis. Occluded - 100% stenosis. IMPRESSION: No significant stenosis in the neck. 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
[2023-03-11] MEDS ORDERED: CYANOCOBALAMIN 500 MCG TAB PO SCH (09:00)
--- NOTE | 2023-03-11 09:14 | P.PN ---
Subjective Progress Note Date: 03/11/23 Principal diagnosis: Headaches Patient seen and examined today as a follow-up. She is postop day #1 for right temporal artery biopsy to rule out temporal arteritis. She states headache is improved. She has no complaints of pain at the incision site. No focal deficits. No visual changes. Objective - Vital Signs Vital signs: Vital Signs Temp 98.7 F 03/11/23 07:50 Pulse 91 03/11/23 07:50 Resp 12 03/11/23 07:50 BP 119/81 03/11/23 07:50 Pulse Ox 93 L 03/11/23 07:50 FiO2 Intake & Output 03/10/23 03/11/23 03/11/23 18:59 06:59 18:59 Intake Total 900 Output Total 1 Balance 899 Intake: IV 900 Output: Estimated Blood Loss 1 Other: Voiding Method Toilet # Voids 2 7 # Bowel Movements 1 - Exam General appearance: The patient is alert, oriented, holding her head in her hands. HET: Head is normocephalic and atraumatic. Pupils are equal and reactive. Right temporal incision well approximated, no surrounding redness, no bleeding. Neck: Supple. Abdomen: Soft, nondistended. Extremities: Normal skin color and turgor. Neurological: No focal deficits. - Labs CBC & Chem 7: 03/09/23 10:19 03/09/23 10:19 Assessment and Plan Assessment: 1. Chronic headache occurring in the temporal, frontal and occipital region, greater on right than left 2. Postop day #1 for right temporal artery biopsy 3. Elevated ESR 4. Hypertension Plan: 1. Status post right temporal artery biopsy 2. Continue with workup from neurology 3. Rest of the medical management per primary medical team 4. Patient is cleared from vascular surgery for discharge. She can follow-up for biopsy results with her primary care physician. No further workup or intervention per vascular surgery. Thank you for this consultation, we will sign off at this time. The impression and plan of care has been dictated as directed. Dr. Zamorano I performed a history and examination of this patient, discussed the same with the dictator. I agree with the dictator's note ,documented as a scribe. Any additional findings or plans will be noted.
[2023-03-11] MEDS: hydroCHLOROthiazide 25 MG TAB PO SCH (10:27)
[2023-03-11] MEDS: MELOXICAM 7.5 MG TAB PO SCH (10:28)
[2023-03-11] MEDS: METOPROLOL SUCCINATE (ER) 100 MG TAB.ER.24H PO SCH (10:28)
[2023-03-11] MEDS: PREGABALIN 75 MG CAP PO SCH (10:29)
[2023-03-11] MEDS: PANTOPRAZOLE 40 MG/10 ML VIAL IVP SCH (10:29)
[2023-03-11] MEDS: LORATADINE-PSEUDOEPH 5-120 MG 1 EACH TAB.ER.12H PO SCH (10:29)
--- NOTE | 2023-03-11 13:09 | P.DS ---
Providers Date of admission: 03/09/23 09:13 Expected date of discharge: 03/11/23 Attending physician: Cameron Foster MD Consults: 03/07/23 12:31 Consult Physician Routine Consulting Provider: Sue Holly Consult Reason/Comments: headache Do you want consulting provider notified?: Yes 03/08/23 12:00 Consult Physician Routine Consulting Provider: Anneliese Zamorano Consult Reason/Comments: temporal biopsy. R/o temporal arteritis Do you want consulting provider notified?: Yes Primary care physician: Sienna Craft Hospital Course: Final Diagnoses: Chronic Cephalgia,frontal-temporal region,elevated ESR, status post right temporal artery biopsy, ruling out temporal arteritis History of back surgery Hypertension Gastroesophageal reflux disease Neuropathy B12 262, low normal, placed on oral supplements Hospital course:This is a 77-year-old female admitted with intractable headache recently treated with IV steroids, inpatient on 01/29/2023,evaluated by vascular surgery and discharged on oral prednisone taper, suspicious for temporal arteritis. Reports her primary discontinued her oral steroids after about 3 weeks as she was unable to tolerate the side effects of the steroids. Reports she had dizziness, positive edema, hypertension, visual changes.This morning patient complains of headache in the frontal area as well as bilateral temples. Reports spasming more so in the right adventist. Denies any lightheadedness, dizziness or focal deficits. Denies visual deficits. ESR 60, repeat 48. Recent MRI performed outside [facility], being obtained. Denies chest pain, palpitations or shortness of breath. Renal function stable. Hypertensive with IV fluids currently running at 75 MLS an hour. 03/09/2023 complains of significant diffuse headache radiating across the frontal-temporal region,accompanied by nausea ,recently medicated with Dilaudid. Denies lightheadedness dizziness or visual disturbances. Denies focal deficits Scheduled for temporal biopsy tomorrow with vascular surgery. 03/10/2023 NPO, temporal biopsy scheduled for today. Reports requires Dilaudid around the clock for her ongoing frontal/temporal headache. Denies blurred vision or focal deficits this morning. Denies chest pain, palpitations or shortness of breath. Rheumatoid factor less than 15, MARIANO negative. Status post right temporal artery biopsy, POD #1. Tolerated procedure well. Reports headache improved, denies blurred vision. Denies lightheadedness, dizziness or focal deficits. Denies chest pain, palpitations or shortness of breath. Cleared by vascular surgery for discharge. Patient has been advised to follow-up with orthopedic spine regarding prior OP MRI (at [facility] ) reporting impingement of nerve roots, mild to moderate severe foraminal stenosis at C2 T1. OP MRI the brain 01/01/2023 reported moderate chronic small vessel ischemic disease. Single punctate focus of calcification/mineralization versus chronic hemorrhage in the right central semiovalve. Patient will be discharged home today in a stable condition with guarded prognosis pending final DC recommendations/steroids and clearance per neurology. The impression and plan of care has been dictated as directed. : I performed a history and examination of this patient, discussed the same with the dictator. I agree with the dictator's note ,documented as a scribe. Any additional findings or plans will be noted. Patient Condition at Discharge: Stable Plan - Discharge Summary New Discharge Prescriptions: New hydroCHLOROthiazide [Hydrodiuril] 25 mg PO DAILY #30 tab Loratadine-Pseudoeph 5-120 mg [Claritin-D 12 Hour] 1 each PO Q12HR tab Acetaminophen Tab [Tylenol] 650 mg PO Q6HR PRN tab PRN Reason: Mild Pain Or Fever > 100.5 Cyanocobalamin [Vitamin B-12] 1,000 mcg PO DAILY tab Continue QUEtiapine FUMARATE 50 mg PO HS Metoprolol Succinate (ER) [Toprol XL] 100 mg PO DAILY Celecoxib 200 mg PO DAILY 30 Days #30 cap Calcium Carbonate [Tums] 500 mg PO QID PRN tab PRN Reason: Heartburn Tsmqjpj-[id number]-Agzj [id number] [Excedrin] 1 tab PO Q4HR PRN PRN Reason: Fever And/ Or Pain Sertraline [Zoloft] 25 mg PO HS Cyclobenzaprine [Flexeril] 5 mg PO BID PRN PRN Reason: Muscle Spasm Pregabalin [Lyrica] 75 mg PO TID Discharge Medication List Cyclobenzaprine [Flexeril] 5 mg PO BID PRN 01/29/23 [History] Metoprolol Succinate (ER) [Toprol XL] 100 mg PO DAILY 01/29/23 [History] Pregabalin [Lyrica] 75 mg PO TID 01/29/23 [History] QUEtiapine FUMARATE 50 mg PO HS 01/29/23 [History] Sertraline [Zoloft] 25 mg PO HS 01/29/23 [History] Calcium Carbonate [Tums] 500 mg PO QID PRN tab 01/30/23 [Rx] Celecoxib 200 mg PO DAILY 30 Days #30 cap 01/30/23 [Rx] Foimtbb-Incg-Thph [id number] [Excedrin] 1 tab PO Q4HR PRN 03/07/23 [History] Acetaminophen Tab [Tylenol] 650 mg PO Q6HR PRN tab 03/11/23 [Rx] Cyanocobalamin [Vitamin B-12] 1,000 mcg PO DAILY tab 03/11/23 [Rx] Loratadine-Pseudoeph 5-120 mg [Claritin-D 12 Hour] 1 each PO Q12HR tab 03/11/23 [Rx] hydroCHLOROthiazide [Hydrodiuril] 25 mg PO DAILY #30 tab 03/11/23 [Rx] Follow up Appointment(s)/Referral(s): Cameron Foster MD [STAFF PHYSICIAN] - 03/17/23 9:30 am ([place] office) Modesta Batista DO [Doctor of Osteopathic Medicine] - 2 Weeks Anneliese Zamorano DO [STAFF PHYSICIAN] - 1 Week Activity/Diet/Wound Care/Special Instructions: Patient may shower, no tub baths or soaking of head. Patient has been advised to follow-up with PCP for biopsy results
--- NOTE | 2023-03-11 14:21 | P.PN ---
Subjective Progress Note Date: 03/11/23 I am following-up with patient and per nurse, somewhat confused today since received prep for IV contrast. She states her headache is over bilateral temporal and is 5/10 and denies any focal weakness, nausea, vomiting. She had right temporal artery biopsy. Objective - Vital Signs Vital signs: Vital Signs Temp 98.3 F 03/11/23 14:00 Pulse 83 03/11/23 14:00 Resp 12 03/11/23 14:00 BP 154/91 03/11/23 14:00 Pulse Ox 86 L 03/11/23 14:00 FiO2 Intake & Output 03/10/23 03/11/23 03/11/23 18:59 06:59 18:59 Intake Total 900 118 Output Total 1 Balance 899 118 Intake: IV 900 Oral 118 Output: Estimated Blood Loss 1 Other: Voiding Method Toilet Toilet # Voids 2 7 # Bowel Movements 1 - Exam GENERAL: The patient is lying in bed and is not in acute distress. HENT: Supple neck. Has scar over the right temporal from biopsy yesterday. NEUROLOGICAL: Higher mental function: The patient is awake, somewhat confused and talking in high pitched voice. She is oriented to self, correctly stated time and place. At times she repeated self. Cranial nerves: The pupils are round, equal and reactive to light and ac commodation. Visual rincon are full to confrontation throughout. Extraocular movement is intact no nystagmus is noted. Facial sensation is normal to touch throughout. The facial strength is normal throughout. Hearing is mildly decreased bilaterally to bilaterally to hand rub. Tongue is midline and moved [id number] without any difficulty. No dysarthria is noted. Shoulder shrug is normal bilaterally. Motor: Gait is normal. The strength is left lower is 5- and appears chronic. Otherwise 5 over 5 throughout. Normal tone and bulk. Cerebellum: Normal finger to nose bilaterally. Sensation: Sensation is normal to touch throughout. Reflexes (right/left): Left lower is 0 and per patient from her back surgery. Otherwise 2+ throughout. Plantars are mute bilaterally. Some of the workup during his hospital visit consisted of: ESR 60 repeat ESR yesterday was 48.this seems on 01/29/2023 her ESR was 101. Recent ESR is 53 CRP is 4.7. Repeat is 5.10 White blood cell is within normal limits. calcium is 9.1, phosphorus 2.8, magnesium 2.0, sodium is 136. Vitamin B-12 of 262 Serum folate is 14.20 TSH is 3.780 MARIANO is negative. RF is <15. CT head is reported as no acute hemorrhage, hydrocephalus or mass effect. I personally reviewed the CT head and that there is no acute ischemia. The patient has hypodensity over the bilateral basal ganglia. CT angiography is reported as no significant stenosis of the neck. Moderate to severe stenosis in the left axillary artery atherosclerosis. 11 mm right thyroid gland nodule. CT angiography of the head is reported as moderate right ICA stenosis with irregularity of the vessel likely due to underlying atherosclerosis. It seems that the patient had a CT of the head on 01/29/2023 and reported as age-related atrophic and chronic small vessel ischemic change without acute intracranial process seen at this time. she had CT of the head because of the headache. Patient had MRI the brain and cervical spine at [facility] open MRI. MRI the brain was performed on 01/01/2023 for the headache and it's reported as moderate chronic small vessel ischemic disease. Single punctate focus of calcification/mineralization versus chronic hemorrhage in the right central semiovalve. She had MRI of the cervical spine in 12/11/2022 which was multiple disc bulges resulting mild/moderate to severe neuroforaminal stenosis on the C2 to T1 also there is impingement on the nerve roots. - Labs CBC & Chem 7: 03/09/23 10:19 03/09/23 10:19 Assessment and Plan Assessment: this is a 77-year-old woman who is been having headache for the past several months and she feels the headache is over the frontal temporal region as well as occipital is seems that her ESR was elevated as high as 101 on 01/29/2023 which is trending down 248 and she feels the headache is improving with steroids. Cephalgia with elevated ESR: concern for temporal arteritis. ESR was as high as a 101 currently is 48-->53 Mild encephalopathy possibly due to medication effect and the patient received Benadryl and steroids on 03/10/2023 Low normal vitamin B12 of 262 history of lower back surgery History of osteoporosis Hypertension Plan: * Patient had right temporal artery biopsy on 03/10/2023 and pending result. * Patient had MRI the brain and cervical spine at [facility] open MRI. * MRI the brain was performed on 01/01/2023 for the headache and it's reported as moderate chronic small vessel ischemic disease. Single punctate focus of calcification/mineralization versus chronic hemorrhage in the right central semiovalve. * She had MRI of the cervical spine in 12/11/2022 which was multiple disc bulges resulting mild/moderate to severe neuroforaminal stenosis on the C2 to T1 also there is impingement on the nerve roots. * For confusion I ordered a routine EEG to rule out any seizure discharges * I ordered anti SSA and anti-SSB antibody, cANCA and pending methylmalonic acid * Seems the patient had four-week regimen of by mouth prednisone with tapering oral steroids on 01/30/2023 and she finished last week. According to the patient the she was notified by her physician she did not need the last 3 days of steroids. * Recommend the patient to follow-up with orthopedic team for her cervical spondylosis and recommend following-up with neurologist and framer as outpatient within 2 weeks. * For the very low normal vitamin B12 I gave her IM 1000mcg vitamin B12 for two days starting 03/09/23 then after that PO 1000 g daily * patient is currently on Dilaudid when necessary started by the ED team, meloxicam. She is also on Lyrica 75 mg 1 tablet 3 times a day * Defer the rest of the medical measure the primary team The plan discussed with the patient and nurse. I attempted to contact the patient's spouse via phone to update him of work-up but received a voice message. Time with Patient: Less than 30
[2023-03-11 14:27] VITALS: TEMP 98.3
--- NOTE | 2023-03-11 15:21 | EEG ---
ELECTROENCEPHALOGRAM REPORT CLINICAL HISTORY: This is a 77-year-old woman with altered mental status. The video EEG is obtained to evaluate for seizure epileptiform activity. RELEVANT MEDICATIONS: Seroquel, Zoloft. EEG TYPE: This is a routine 21 channel EEG with video using the 10/20 electrode placement system. DESCRIPTION: Wakefulness is only obtained. During awake state, the background consists of low-to- moderate voltage of 7.5 to 8.5 that is poorly modulated, poorly sustained. There is no physiological sleep architecture. There is no focal slowing. There is mild to moderate diffuse myogenic artifact. Interictal and ictal is none. ACTIVATION PROCEDURE: Photic stimulation did not evoke a posterior driving response. There is no abnormality during the photic stimulation. Hyperventilation is not performed. CLINICAL INTERPRETATION: This is a subtle abnormal routine EEG. The background is suggestive of subtle slowing. Otherwise, there is no focal slowing, epileptiform discharge, or seizure on the EEG. Clinical correlation is recommended. MMTAYLOR / JLN: [id number] /
[2023-03-11 16:51] VITALS: BP 145/81; PULSE 86; RESP 16
[2023-03-12 13:54] LABS: C-ANCA <1:20 Titer (<1:20)
== END 2023-03-11 16:13 | disposition home or self-care (01) | DRG 515 ==
LOC: EC 21:48 → 6NMEDSUR 03-07 01:36 → OBSVTOIN 03-09 09:13
PROVIDERS: ADMIT Family Medicine; ATTEND Family Medicine
PROC: 03BS3ZX Excision of Right Temporal Artery, Percutaneous Approach, Diagnostic (ICD-10-PCS; principal; 2023-03-10 12:30)
DX: M31.6 Other giant cell arteritis (principal); G92.8 Other toxic encephalopathy; I10 Essential (primary) hypertension; K21.9 Gastro-esophageal reflux disease without esophagitis; G62.9 Polyneuropathy, unspecified; M19.90 Unspecified osteoarthritis, unspecified site; M81.0 Age-related osteoporosis without current pathological fracture; T45.0X5A Adverse effect of antiallergic and antiemetic drugs, initial encounter; T38.0X5A Adverse effect of glucocorticoids and synthetic analogues, initial encounter; M47.812 Spondylosis without myelopathy or radiculopathy, cervical region; M48.02 Spinal stenosis, cervical region; Z79.899 Other long term (current) drug therapy; Z79.1 Long term (current) use of non-steroidal anti-inflammatories (NSAID); Z88.5 Allergy status to narcotic agent; Z85.820 Personal history of malignant melanoma of skin
CPT/HCPCS: 36415; 70450; 70496; 70498; 80048; 80053; 82140; 82607; 82746; 83735; 83880; 83921; 84100; 84443; 84484; 85025; 85610; 85652; 85730; 86038; 86140; 86235; 86255; 86431; 86850; 86900; 86901; 88305; 93005; 95816; 96361; 96374; 96375; 99285

== ENCOUNTER → 2023-12-03 | Outpatient (CLI) | payer MEDICARE ==
--- NOTE | 2023-12-29 12:29 | MM ---
Reason for Exam: Screening (asymptomatic). Last mammogram was performed 5 year(s) and 9 month(s) ago. Patient History: Menarche at age 18. First Full-Term at age 21. Postmenopausal. Other cancer, age 60. Estrogen for 1 month. 08/29/1996, Benign Core Biopsy on the right side. 08/29/1996, Benign Stereotactic Core Biopsy on the right side. Maternal aunt had breast cancer, age 89. Sister had breast cancer, age 58. Risk Values: Deja 5 year model risk: 4.5%. NCI Lifetime model risk: 8.9%. Prior Study Comparison: 10/03/2012 Bilateral Screening Mammogram, [facility]. 04/06/2014 Bilateral Screening Mammogram, [facility]. 04/13/2014 Right Diagnostic Mammogram, [facility]. 03/28/2018 Bilateral Diagnostic Mammogram, [facility]. Tissue Density: There are scattered areas of fibroglandular density. Findings: Analyzed By CAD. Right breast: There is no suspicious group of microcalcifications or new suspicious mass. Left breast: There is no suspicious group of microcalcifications or new suspicious mass. Overall Assessment: Negative, BI-RAD 1 Management: Screening Mammogram of both breasts in [address] [facility] will attempt to contact patient to return for supplemental views and ultrasound if indicated. Patient should continue monthly self-breast exams. A clinical breast exam by your physician is recommended on an annual basis. This exam should not preclude additional follow-up of suspicious palpable abnormalities. Note on Deja scores and lifetime risk: 1. A Deja score greater than 3% is considered moderate risk. If this is the case, consider specialist referral to assess eligibility for a risk reducing agent. 2. If overall lifetime risk for the development of breast cancer is 20% or higher, the patient may qualify for future screening with alternating mammogram and breast MRI. Electronically signed and approved by: Chase Braga DO
== END | disposition home or self-care (01) ==
LOC: RADMAMWWP 07:17
PROVIDERS: ATTEND Family Medicine
DX: Z12.31 Encounter for screening mammogram for malignant neoplasm of breast (principal); R92.323 Mammographic fibroglandular density, bilateral breasts; Z78.0 Asymptomatic menopausal state; Z80.3 Family history of malignant neoplasm of breast
CPT/HCPCS: 77063; 77067